=== PATIENT | female | born 1935 | race Caucasian/White ===

== ENCOUNTER 2020-04-15 12:48 | Outpatient (CLI) | payer MEDICARE, OTHER, SELFPAY ==
--- NOTE | 2020-04-15 13:00 | CT_ITS ---
WS: [id number] CT RIGHT HIP, NONCONTRAST. HISTORY: RIGHT HIP PAIN Technique: All CT scans at [facility] use at least one of these dose optimization techniq ues: automated exposure control; mA and/or kV adjustment per patient size (includes targeted exams wh ere dose is matched to clinical indication); or iterative reconstruction. DLP: 694.35 mGycm COMPARISON: Hip radiographs 04/15/2020. History: RIGHT hip pain. Patient fell 3 weeks ago. No acute RIGHT hip fracture. Mild narrowing of the hip joint with osteoarthritis. Endovascular graft is noted extending into the LEFT external iliac artery. There is a partially healed fracture involving the RIGHT inferior pubic rami. No fracture involving t he superior pubic rami. RIGHT adnexal cyst with a maximum diameter of 2.[address]/CT lower leg RT wo con* [id number] IMPRESSION: 1. Partially healed, nondisplaced fracture inferior RIGHT pubic rami. 2. No RIGHT hip fracture.
== END 2020-04-15 12:49 | disposition home or self-care (01) ==
LOC: RADWPI 12:53
PROVIDERS: Family Provider Family Medicine; PCP Family Medicine; Visit Provider Family Medicine
DX: M25.551 Pain in right hip (principal); W19.XXXA Unspecified fall, initial encounter
CPT/HCPCS: 73700

== ENCOUNTER 2020-04-15 13:13 | Outpatient (CLI) | payer MEDICARE, OTHER, SELFPAY ==
--- NOTE | 2020-04-15 | XR_ITS ---
WS: [id number] RIGHT HIP HISTORY: RIGHT HIP PAIN COMPARISON: 01/19/2019 Right hip: No acute fracture or dislocation. Mild osteopenia and mild joint space narrowing. No destr uctive bone process. Arterial stent grafts in the RIGHT iliac artery. 3. Note: The RIGHT inferior pubic rami fracture seen by CT is not evident radiographically. XR/XR hip RT 2-3V wo/w pel* [id number] IMPRESSION: 1. No hip fracture. 2. Mild osteopenia and degenerative joint disease.
== END 2020-04-15 13:14 | disposition home or self-care (01) ==
LOC: RADOUTREAD 13:15
PROVIDERS: Family Provider Family Medicine; PCP Family Medicine; Visit Provider Family Medicine
DX: Z53.9 Procedure and treatment not carried out, unspecified reason (principal)

== ENCOUNTER 2020-06-14 12:51 | Outpatient (CLI) | payer MEDICARE, OTHER, SELFPAY ==
--- NOTE | 2020-06-14 | CT_ITS ---
WS: [id number] CT PELVIS WITHOUT CONTRAST. HISTORY: PELVIC FX TECHNIQUE: Contiguous imaging is performed of the pelvis without contrast. Coronal and sagittal refor mats are reviewed. All CT scans at [facility] use at least one of these dose optimization techniques: automated exposure control; mA and/or kV adjustment per patient size (includes targeted exams where dose is matched to clinical indication); or iterative reconstruction. DLP: 788.47 mGycm COMPARISON: 04/08/2018. Pelvis radiograph 05/27/2020. 04/15/2020. Moderate LEFT convex scoliosis lumbar spine with asymmetric disc space narrowing and vacuum disc phen omenon. Partially healed fracture RIGHT inferior pubic ramus. This fracture was described on 0. No new or interval fractures. SI joints are slightly narrowed bilaterally. Mild degenerative joint disease at the hips. Stent catheter in the RIGHT iliac vein. Atherosclerosis in the external and internal iliac arteries. RIGHT adnexal cyst measures 2.6 cm. No interval change in size since 04/08/2018. CT/CT pelvis wo con [id number] IMPRESSION: 1. No acute pelvic fracture. 2. Partially healed RIGHT inferior pubic rami fracture. Previously described o n 04/15/2020. 3. Moderate rotoscoliosis to the LEFT lumbar spine. 4. Long-term stability RIGHT adnexal cyst.
== END 2020-06-14 12:52 | disposition home or self-care (01) ==
LOC: RADWPI 12:59
PROVIDERS: Family Provider Family Medicine; PCP Family Medicine; Visit Provider Family Medicine
DX: S32.9XXA Fracture of unspecified parts of lumbosacral spine and pelvis, initial encounter for closed fracture (principal); X58.XXXA Exposure to other specified factors, initial encounter; M41.86 Other forms of scoliosis, lumbar region
CPT/HCPCS: 72192

== ENCOUNTER 2020-07-25 10:23 | Outpatient (CLI) | payer MEDICARE, OTHER, SELFPAY ==
--- NOTE | 2020-07-25 11:00 | USCV_ITS ---
Piedad Zamora Age: 84 Gender: F : 1935 Exam Date: 07/25/2020 10:58 Ordering Phys: Malika Platt MD ([email or web address]) Technologist: Maribel Hernandez Exam Location: [facility] [place] Indication: CAROTID STENOSIS Risk Factors: Previous Vascular Surgery: Right Brachial BP: / Left Brachial BP: / Right Left Velocity (cm/s) Spectral Plaque Velocity (cm/s) Spectral Plaque Syst/Diast Broadening Syst/Diast Broadening 89.30/ 11.00 Prox CCA 94.80 / 14.30 63.90/ 14.30 Mid CCA 68.40 / 8.80 59.50/ 12.10 Distal CCA 59.50 / 12.10 233.20/44.20 Prox ICA 84.90 / 24.30 152.80/34.20 Mid ICA 92.60 / 22.10 88.50/ 18.10 Distal ICA 69.50 / 15.40 86.00 ECA 87.10 3.65 ICA/CCA 1.35 Antegrade Vertebral Antegrade 37.50/ 8.80 cm/s 59.50/ 12.10 cm/s Tri Subclavian Tri FINDINGS Moderate to heavy heterogeneous plaques at the right bifurcation and proximal internal carotid artery. Moderate heterogeneous plaques of the left bifurcation and proximal internal carotid artery. Antegrade flow in the vertebral arteries bilaterally. Normal Doppler flow velocities in the external carotid arteries bilaterally. CONCLUSIONS Moderate to heavy heterogeneous plaques at the right bifurcation and proximal internal carotid artery with velocity elevation consistent with 50-79% stenosis. Moderate heterogeneous plaques of the left bifurcation and proximal internal carotid arteryw with velocity elevation consistent with 16-49% stenosis. Intimal thickening in the common carotid arteries bilaterally . Dr Malika Platt MD [facility] (Electronically Signed) Final Date: 26 July 2020 09:20 S
== END 2020-07-25 10:24 | disposition home or self-care (01) ==
LOC: US 10:25
PROVIDERS: PCP Family Medicine; Visit Provider Internal Medicine Cardiovascular Disease
DX: I65.23 Occlusion and stenosis of bilateral carotid arteries (principal)
CPT/HCPCS: 93880

== ENCOUNTER 2020-07-30 13:30 | Outpatient (CLI) | payer MEDICARE, OTHER, SELFPAY ==
--- NOTE | 2020-07-30 13:38 | CT_ITS ---
WS: [id number] CT CHEST TECHNIQUE: Contrast enhanced CT of the chest with coronal and sagittal reformatted images. CLINICAL INFORMATION: LEFT PULMONARY NODULE COMPARISON: June 08, 2019 DLP: 624.[address] scans at [facility] use at least one of these dose optimization techniques: automat ed exposure control; mA and/or kV adjustment per patient size (includes targeted exams where dose is matched to clinical indication); or iterative reconstruction. FINDINGS: Moderate chronic emphysematous changes. Again seen are the bilateral mainly upper lobe tree-in-bud in filtrates no significant change since 2019. Spiculated nodular opacity right middle lobe anteriorly i s new from previous and may represent focal fibrosis but indeterminant measuring 8 mm. Recommend 3-6 month follow-up. Sternotomy with prior CABG. Coronary calcification. Aortic calcification. Normal caliber thoracic aor ta. Proximal main pulmonary arteries are normal. No mediastinal or hilar lymphadenopathy. No axillary lymphadenopathy. Small esophageal hiatal hernia. Cholecystectomy clips. Adrenal glands are normal. Hypertrophic changes thoracic spine. Dorsal spinal stimulator in the mid thoracic spine. Fibrosis in the lung apices.No other suspicious findings. CT/CT chest w con* [id number] IMPRESSION: 1. Moderate chronic emphysematous changes. 2. No mediastinal or hilar lymphadenopathy. 3. Fibrotic changes with tree-in-bud opacities in the upper lobes bilaterally not significantly changed since June 06, 2019. 4. Slightly spiculated opacity in the right middle lobe anteriorly may represe nt incidental fibrosis but indeterminant. Recommend 3-6 month follow-up. Spicul ated opacity measures 8 mm. 5. Small esophageal hiatal hernia. 6. No other significant changes from previous.
[2020-07-30] MEDS: iodixanol 320 mg/mL 100mL Btl IV (14:29)
== END 2020-07-30 13:31 | disposition home or self-care (01) ==
LOC: RADWPI 13:37
PROVIDERS: PCP Family Medicine; Visit Provider Family Medicine
DX: R91.1 Solitary pulmonary nodule (principal); K44.9 Diaphragmatic hernia without obstruction or gangrene
CPT/HCPCS: 71260; Q9967

== ENCOUNTER 2020-10-06 19:50 | Inpatient (IN) | payer MEDICARE, OTHER, SELFPAY ==
[2020-10-06 19:55] VITALS: BP 158/107; PULSE 90; RESP 18; TEMP 36.4; O2SAT 97; BMI 24.7
[2020-10-06 20:17] VITALS: BP 134/95; PULSE 99; RESP 12; O2SAT 98
--- NOTE | 2020-10-06 20:30 | XRR_ITS ---
PROCEDURE INFORMATION: Exam: XR Chest, 1 View Exam date and time: 10/06/2020 8:42 PM Age: 84 years old Clinical indication: Condition or disease; Other: Covid; Shortness of breath; Prior surgery; Surgery type: Hyst, nerve stimulator, cabg, gb; Additional info: Covid+, SOB TECHNIQUE: Imaging protocol: XR of the chest Views: 1 view. COMPARISON: CT chest w con* [id number] 07/30/2020 2:23 PM FINDINGS: Lungs: Minimal hazy opacities in the bilateral upper and lower peripheral lung zones. Pleural space: No pleural effusion. No pneumothorax. Heart/Mediastinum: Mild cardiomegaly. Bones/joints: Previous sternotomy. Postsurgical changes in the lower cervical spine. XR/XR chest 1V portable [id number] IMPRESSION: Minimal hazy opacities in the bilateral upper and lower peripheral lung zones. Findings can be seen with pneumonia to include atypical etiologies.
[2020-10-06 20:49] LABS: Basophils % 0.2 %; Eosinophils % 0.3 %; Hematocrit 45.9 % (37.0-47.0); Hemoglobin 15.5 g/dL (11.5-15.3); Lymphocytes # 1.7 10^3/uL (0.8-4.8); Lymphocytes % 17.2 %; Mean Corpuscular HGB Conc 33.8 g/dL (30.0-36.0); Mean Corpuscular Hemoglobin 32.4 pg (28.0-34.0); Mean Corpuscular Volume 95.8 fL (81-99); Neutrophils # 6.83 10^3/uL (1.8-7.7); Neutrophils % 70.1 %; Nucleated Red Blood Cells % 0 %; Platelet Count 331 10^3/cmm (130-400); Red Blood Count 4.79 10^6/uL (4.1-5.3); Red Cell Distribution Width 11.9 % (12.1-15.1); White Blood Count 9.7 10^3/uL (4.0-10.0)
[2020-10-06 20:59] LABS: Alanine Aminotransferase 28 U/L (0-33); Albumin Level 3.7 g/dL (3.5-5.2); Alkaline Phosphatase 82 IU/L (35-105); Aspartate Amino Transferase 27 U/L (0-32); Blood Urea Nitrogen 24 mg/dL (8-23); C Reactive Protein 19.1 mg/L (0.0-4.9); Calcium 9.5 mg/dL (8.5-10.5); Carbon Dioxide 26 mmol/L (22-29); Chloride 105 mmol/L (98-107); Creatine Phosphokinase 36 U/L (26-192); Creatinine Clr Calc Pharmacy 46.9729; Globulin 3.7 g/dL (1.3-4.6); Glucose 127 mg/dL (65-115); Osmolality Calculated 312 mOsm/kg (285-295); Sodium 148 mmol/L (136-145); Total Protein 7.4 g/dL (6.6-8.7)
[2020-10-06 21:00] LABS: Lactate (Lactic Acid level) 1.5 mmol/L (0.5-2.2)
--- NOTE | 2020-10-06 21:15 | PC.NURSE ---
patient given water per hcp verbal consent.
[2020-10-06 21:25] LABS: D Dimer 2.34 ug/mIFEU (0-0.59)
--- NOTE | 2020-10-06 21:28 | CTR_ITS ---
PROCEDURE INFORMATION: Exam: CT Angiography Chest With Contrast Exam date and time: 10/06/2020 9:37 PM Age: 84 years old Clinical indication: Shortness of breath; Prior surgery; Surgery date: 6+ months; Surgery type: Cabg, vns; Patient HX: Covid+ w weakness, SOB, and elev d-dimer; Additional info: Covid +, SOB TECHNIQUE: Imaging protocol: Computed tomographic angiography of the chest with intravenous contrast. 3D rendering (Not supervised by radiologist): MIP and/or 3D reconstructed images were created by the technologist. Radiation optimization: All CT scans at this facility use at least one of these dose optimization techniques: automated exposure control; mA and/or kV adjustment per patient size (includes targeted exams where dose is matched to clinical indication); or iterative reconstruction. Contrast material: OMNI 350; Contrast volume: 54 ml; Contrast route: INTRAVENOUS (IV); COMPARISON: CT chest w con* [id number] 07/30/2020 2:23 PM RADIATION DOSE METRICS: Total DLP (mGy-cm): 476.56 FINDINGS: Tubes, catheters and devices: Spinal stimulator device with distal tip at the T9 level. Pulmonary arteries: Pulmonary arteries are well opacified. Pulmonary arteries are normal in caliber. No filling defects are demonstrated. No evidence of pulmonary embolism. Aorta: Atherosclerosis of the thoracic aorta. No aortic aneurysm or dissection. Lungs: Mild interstitial fibrosis in both lungs. There are ground-glass infiltrates identified, peripherally located in the bilateral lungs. Pleural space: No pleural effusion or pneumothorax noted. Heart: Mild cardiomegaly. Marked thickening of the left ventricular myocardium. No pericardial effusion. Mediastinal space: There is a small hiatal hernia present. Lymph nodes: Unremarkable. No enlarged lymph nodes. Gallbladder and bile ducts: The gallbladder is surgically absent. Bones/joints: Postop change of the cervical spine. Median sternotomy noted. Scoliosis and degeneration of the spine. Soft tissues: Unremarkable. CT/CT angio chest PE protcl [id number] IMPRESSION: 1. No evidence of pulmonary embolism. 2. No evidence of aortic dissection. 3. Mild cardiomegaly. Marked thickening of the left ventricular myocardium. No pericardial effusion. 4. Mild interstitial fibrosis in both lungs. There are ground-glass infiltrates identified, peripherally located in the bilateral lungs. Commonly reported imaging features of COVID-19 pneumonia are present. Other processes such as influenza pneumonia and organizing pneumonia, as can be seen with drug toxicity and connective tissue disease, can cause a similar imaging pattern. (Reference: Yifan) 5. Spinal stimulator device with distal tip at the T9 level. REFERENCES: Yifan Munoz, et al., Radiological Society [place] Expert Consensus Statement on Reporting Chest CT Findings Related to COVID-19. Endorsed by the Society of Thoracic Radiology, the [employer], and RSNA. Published January 10, 2020. Radiation Dose CTDIVOL = (mGy): DLP = 476.56 (mGy-cm)
[2020-10-06 21:34] VITALS: PULSE 93; RESP 18; O2SAT 98
[2020-10-06 21:40] LABS: Add Urine Microscopic? YES; Bilirubin Urine 1+ (Negative); Blood Urine Trace (Negative); Glucose Urine UA Norm (Normal); Ketones Urine 1+ (Negative); Leukocyte Esterase Urine 1+ (Negative); Nitrate Urine Negative (Negative); Protein Urine 1+ (Negative); Urine Appearance SL Hazy (CLEAR); Urine Color Yellow (Yellow); Urobilinogen Urine 4 mg/dL (Negative); pH Urine 5 (5-7)
[2020-10-06 21:45] LABS: Add Urine Culture? No; Bacteria Urine 1+ /hpf; Mucus Urine TRACE /hpf; Squamous Epithelial Cell Urine 25-40 /hpf (0-5); WBC Urine 15-25 /hpf (0-5)
--- NOTE | 2020-10-06 22:10 | W.ED.WEAKNES ---
HPI - Weakness General: Chief complaint: Weakness Stated complaint: WEAKNESS Time Seen by Provider: 10/06/20 20:07 Source: patient Mode of arrival: EMS Limitations: no limitations History of Present Illness: HPI Narrative: This 84-year-old female patient started feeling ill about 3 weeks ago. Symptoms included a fever, body aches, nausea, loss of appetite. A few days after that she got tested for Covid 19 and tested positive. Primary care providers had advised that she received the monoclonal antibodies but she declined. The patient states that she has gradually worsened and she has almost no appetite at this point. She feels very weak. She lives at home alone and the history is obtained from the patient, her primary care provider's office, and her daughter. Complaint: generalized weakness Onset (ago): week(s) (3) Duration: constant and progressively worsening Location: generalized Migration: none Relieving factors: none Exacerbating factors: none Associated symptoms: Reports chills, fever(s), myalgias and nausea; Denies chest pain, confusion, melena, decreased appetite, diaphoresis, dysuria, easy bruising, headache(s), rash, short of breath, syncope or vomiting Review of Systems General: Reports: 10 or more systems reviewed and unremarkable except in HPI and below Const: Reports: fever(s) and chills; Denies: diaphoresis Eyes: Denies: change in vision or blurry vision ENMT: Denies: throat pain, enlarged tonsils, odynophagia, hoarseness, mouth pain or swelling of lips/tongue Card: Denies: chest pain or syncope Resp: Denies: dyspnea, productive cough or non-productive cough GI: Reports: nausea; Denies: vomiting or melena : Denies: dysuria Musc: Denies: neck pain, back pain or extremity swelling Skin/Breast: Denies: rash, pruritus or erythema Neuro: Denies: headache(s) or confusion Endo: Denies: polyuria, polydipsia or tired all the time Harjinder/Lymph: Denies: easy bruising PFSH ED PFSH: Medical History (Updated 10/07/20 @ 00:05 by Phil Jim MD, [facility] [place]) ASHD (arteriosclerotic heart disease) Bilateral carotid artery stenosis Cervical stenosis of spinal canal Hyperlipidemia Hypertension Surgical History H/O discectomy H/O: hysterectomy History of carpal tunnel surgery History of knee replacement, total Hx of appendectomy Hx of CABG S/P cataract surgery S/P cholecystectomy S/P placement of VNS (vagus nerve stimulation) device Family History Other CAD (coronary artery disease) Diabetes Hypertension Social History Smoking and tobacco status: former smoker Alcohol intake: never Physical Exam Const: COMMON NORMALS: no acute distress, average body habitus, patient oriented x3, no limitations, healthy appearing, alert and well nourished HENMT: COMMON NORMALS: normocephalic, atraumatic and moist oral mucous membranes HEAD & SCALP: normocephalic and atraumatic Neck/C-Spine: COMMON NORMALS: no meningeal signs and no JVD Resp: COMMON NORMALS: normal respiratory effort, No retractions, No use of accessory muscles, clear to auscultation bilaterally and percussion normal AUSCULTATION: clear to auscultation bilaterally PERCUSSION: percussion normal Cardio: COMMON NORMALS: no JVD, regular rate, regular rhythm, S1 normal heart sound present, S2 normal heart sound present, No gallops present (Cardio), No clicks present (Cardio), No murmurs present (Cardio), No rub (Cardio) and Peripheral pulses 2+ throughout RATE: regular rate RHYTHM: regular rhythm HEART SOUNDS: S1 normal heart sound present and S2 normal heart sound present PERIPHERAL PULSES: Peripheral pulses 2+ throughout GI: COMMON NORMALS: Normal to inspection, nondistended, normoactive bowel sounds present, Soft to palpation, non-tender, No hepatosplenomegaly present, no masses and no bruits PALPATION: Yes Soft to palpation and Yes No hepatosplenomegaly present Extremity: COMMON NORMALS: normal to inspection, full ROM, capillary refill normal, no calf tenderness and no pedal edema Neuro: COMMON NORMALS: patient oriented x3 SENSORIUM/ORIENTATION: Yes alert MENINGEAL SIGNS: Yes no meningeal signs Skin: COMMON NORMALS: no rashes or lesions noted, no wounds, turgor normal, no jaundice, no petechiae and no mottling GENERAL SKIN EXAM: no rashes or lesions noted and turgor normal Course Consultations: Consultation #1: Discussed the patient with Dr. Campbell, hospitalist and he kindly accepted patient to his service. Time: 22:50 Vital Signs: Vital signs: Vital Signs Temperature 97.6 F 10/06/20 19:55 Pulse Rate 88 10/06/20 23:35 Respiratory Rate 14 10/06/20 23:35 Blood Pressure 120/76 10/06/20 23:35 Pulse Oximetry 99 10/06/20 23:35 MDM - Weakness MDM Narrative: Medical decision making narrative: This 84-year-old female patient who lives at home alone has a history of atherosclerotic heart disease, hypertension, who was diagnosed with Covid 19 almost 3 weeks ago. Patient has been unwell since then and continues to have body aches, intermittent fever, and now has a really poor appetite. Evaluation in the emergency department was unremarkable although she had a markedly elevated D-dimer. CTA of her lungs were negative for PE. I however feel it is unsafe for this patient to be discharged back home as she lives alone and her nearest relative is 3 hours away. She is high risk and so I think it is safer for her to be admitted to the hospital for further evaluation and management. Medical Records: Attestation: I reviewed the patient's medical records. Lab Data: Attestation: I reviewed the patient's lab results. Labs: Lab Results 10/06/20 10/06/20 10/06/20 Range/Units 20:10 20:10 20:10 WBC 9.7 (4.0-10.0) 10^3/ uL RBC 4.79 (4.1-5.3) 10^6/u L Hgb 15.5 H (11.5-15.3) g/dL Hct 45.9 (37.0-47.0) % MCV 95.8 (81-99) fL MCH 32.4 (28.0-34.0) pg MCHC 33.8 (30.0-36.0) g/dL RDW 11.9 L (12.1-15.1) % Plt Count 331 (130-400) 10^3/c mm MPV 10.0 (7.4-10.4) fL Neut % (Auto) 70.1 % Lymph % (Auto) 17.2 % Wood % (Auto) 10.0 % Eos % (Auto) 0.3 % Baso % (Auto) 0.2 % Neut # (Auto) 6.83 (1.8-7.7) 10^3/u L Lymph # (Auto) 1.7 (0.8-4.8) 10^3/u L Wood # (Auto) 1.0 H (0.2-0.9) 10^3/u L Eos # (Auto) 0.0 (0.0-0.8) 10^3/u L Baso # (Auto) 0.0 (0.0-0.1) 10^3/u L Nucleated RBC % (a uto) 0 % Nucleated RBCs # 0.0 /100WBC D-Dimer 2.34 H (0-0.59) ug/mIFE U Sodium 148 H (136-145) mmol/L Potassium 4.0 (3.5-5.1) mmol/L Chloride 105 (98-107) mmol/L Carbon Dioxide 26 (22-29) mmol/L Anion Gap 21.0 H (5-19) BUN 24 H (8-23) mg/dL Creatinine 0.8 (0.5-0.9) mg/dL GFR Calculation Not Reportable Glucose 127 H (65-115) mg/dL Calculated Osmolal ity 312 H (285-295) mOsm/k g Lactate (0.5-2.2) mmol/L Calcium 9.5 (8.5-10.5) mg/dL Total Bilirubin 1.0 (0.15-1.2) mg/dL AST 27 (0-32) U/L ALT 28 (0-33) U/L Alkaline Phosphata se 82 (35-105) IU/L Creatine Kinase 36 (26-192) U/L C-Reactive Protein 19.1 H (0.0-4.9) mg/L Total Protein 7.4 (6.6-8.7) g/dL Albumin 3.7 (3.5-5.2) g/dL Globulin 3.7 (1.3-4.6) g/dL Urine Color (Yellow) Urine Appearance (CLEAR) Urine pH (5-7) Ur Specific Gravit y (1.005-1.030) Urine Protein (Negative) Urine Glucose (UA) (Normal) Urine Ketones (Negative) Urine Blood (Negative) Urine Nitrate (Negative) Urine Bilirubin (Negative) Urine Urobilinogen (Negative) mg/dL Ur Leukocyte Deonna ase (Negative) Urine RBC (0-2) /hpf Urine WBC (0-5) /hpf Ur Squamous Epith Cells (0-5) /hpf Amorphous Sediment Urine Bacteria (NONE) /hpf Urine Mucus /hpf 10/06/20 10/06/20 Range/Units 20:10 21:32 WBC (4.0-10.0) 10^3/ uL RBC (4.1-5.3) 10^6/u L Hgb (11.5-15.3) g/dL Hct (37.0-47.0) % MCV (81-99) fL MCH (28.0-34.0) pg MCHC (30.0-36.0) g/dL RDW (12.1-15.1) % Plt Count (130-400) 10^3/c mm MPV (7.4-10.4) fL Neut % (Auto) % Lymph % (Auto) % Wood % (Auto) % Eos % (Auto) % Baso % (Auto) % Neut # (Auto) (1.8-7.7) 10^3/u L Lymph # (Auto) (0.8-4.8) 10^3/u L Wood # (Auto) (0.2-0.9) 10^3/u L Eos # (Auto) (0.0-0.8) 10^3/u L Baso # (Auto) (0.0-0.1) 10^3/u L Nucleated RBC % (a uto) % Nucleated RBCs # /100WBC D-Dimer (0-0.59) ug/mIFE U Sodium (136-145) mmol/L Potassium (3.5-5.1) mmol/L Chloride (98-107) mmol/L Carbon Dioxide (22-29) mmol/L Anion Gap (5-19) BUN (8-23) mg/dL Creatinine (0.5-0.9) mg/dL GFR Calculation Glucose (65-115) mg/dL Calculated Osmolal ity (285-295) mOsm/k g Lactate 1.5 (0.5-2.2) mmol/L Calcium (8.5-10.5) mg/dL Total Bilirubin (0.15-1.2) mg/dL AST (0-32) U/L ALT (0-33) U/L Alkaline Phosphata se (35-105) IU/L Creatine Kinase (26-192) U/L C-Reactive Protein (0.0-4.9) mg/L Total Protein (6.6-8.7) g/dL Albumin (3.5-5.2) g/dL Globulin (1.3-4.6) g/dL Urine Color Yellow (Yellow) Urine Appearance Sl hazy (CLEAR) Urine pH 5 (5-7) Ur Specific Gravit y 1.020 (1.005-1.030) Urine Protein 1+ H (Negative) Urine Glucose (UA) Norm (Normal) Urine Ketones 1+ H (Negative) Urine Blood Trace H (Negative) Urine Nitrate Negative (Negative) Urine Bilirubin 1+ H (Negative) Urine Urobilinogen 4 H (Negative) mg/dL Ur Leukocyte Deonna ase 1+ H (Negative) Urine RBC 5-10 H (0-2) /hpf Urine WBC 15-25 H (0-5) /hpf Ur Squamous Epith Cells 25-40 H (0-5) /hpf Amorphous Sediment Not Reportable Urine Bacteria 1+ H (NONE) /hpf Urine Mucus Trace /hpf Imaging Data^: CTA Chest: Radiologist's impression: [place] [address] CT Scan Report Signed Patient: Piedad Zamora #: [id number] : 6Acct#:[id number] Age/Sex: 84 / FADM Date: 10/06/20 Loc: ERRoom/Bed: Attending Dr: Ordering Provider/Ordering MD: Phil Jim MD, [facility] [place] Date of Service: 10/06/20 Procedure(s): CT angio chest PE protcl [id number] Accession Number(s): [id number] Report Number: [id number] PROCEDURE INFORMATION: Exam: CT Angiography Chest With Contrast Exam date and time: 10/06/2020 9:37 PM Age: 84 years old Clinical indication: Shortness of breath; Prior surgery; Surgery date: 6+ months; Surgery type: Cabg, vns; Patient HX: Covid+ w weakness, SOB, and elev d-dimer; Additional info: Covid +, SOB TECHNIQUE: Imaging protocol: Computed tomographic angiography of the chest with intravenous contrast. 3D rendering (Not supervised by radiologist): MIP and/or 3D reconstructed images were created by the technologist. Radiation optimization: All CT scans at this facility use at least one of these dose optimization techniques: automated exposure control; mA and/or kV adjustment per patient size (includes targeted exams where dose is matched to clinical indication); or iterative reconstruction. Contrast material: OMNI 350; Contrast volume: 54 ml; Contrast route: INTRAVENOUS (IV); COMPARISON: CT chest w con* [id number] 07/30/2020 2:23 PM RADIATION DOSE METRICS: Total DLP (mGy-cm): 476.56 FINDINGS: Tubes, catheters and devices: Spinal stimulator device with distal tip at the T9 level. Pulmonary arteries: Pulmonary arteries are well opacified. Pulmonary arteries are normal in caliber. No filling defects are demonstrated. No evidence of pulmonary embolism. Aorta: Atherosclerosis of the thoracic aorta. No aortic aneurysm or dissection. Lungs: Mild interstitial fibrosis in both lungs. There are ground-glass infiltrates identified, peripherally located in the bilateral lungs. Pleural space: No pleural effusion or pneumothorax noted. Heart: Mild cardiomegaly. Marked thickening of the left ventricular myocardium. No pericardial effusion. Mediastinal space: There is a small hiatal hernia present. Lymph nodes: Unremarkable. No enlarged lymph nodes. Gallbladder and bile ducts: The gallbladder is surgically absent. Bones/joints: Postop change of the cervical spine. Median sternotomy noted. Scoliosis and degeneration of the spine. Soft tissues: Unremarkable. CT/CT angio chest PE protcl [id number] IMPRESSION: 1. No evidence of pulmonary embolism. 2. No evidence of aortic dissection. 3. Mild cardiomegaly. Marked thickening of the left ventricular myocardium. No pericardial effusion. 4. Mild interstitial fibrosis in both lungs. There are ground-glass infiltrates identified, peripherally located in the bilateral lungs. Commonly reported imaging features of COVID-19 pneumonia are present. Other processes such as influenza pneumonia and organizing pneumonia, as can be seen with drug toxicity and connective tissue disease, can cause a similar imaging pattern. (Reference: Yifan) 5. Spinal stimulator device with distal tip at the T9 level. REFERENCES: Yifan Munoz et al., Radiological Society [place] Expert Consensus Statement on Reporting Chest CT Findings Related to COVID-19. Endorsed by the Society of Thoracic Radiology, the [place] [employer], and RSNA. Published January 10, 2020. Radiation Dose CTDIVOL = (mGy): DLP = 476.56 (mGy-cm) Dictated By:Darinel Blackmon MD Signed By:Darinel Blackmon MDSigned Date/Time:10/06/202244 DD/ 42 Discharge Plan Discharge Patient Disposition: Admitted As Inpatient Admit Provider: Anderson Campbell Clinical Impression: COVID-19, Generalized weakness, Hypernatremia Condition: Stable Coding Level of Care Code ED Soloist Dancer for Chg Fwd Exam Comprehensive
[2020-10-06] MEDS: iohexol 350 mg/mL 100 mL Btl IV (22:31)
[2020-10-06 22:48] VITALS: BP 155/92; PULSE 92; RESP 14; O2SAT 97
[2020-10-06] MEDS: sodium chloride 0.9% 1,000 ML 999 ML IV (22:48)
--- NOTE | 2020-10-06 22:52 | PC.NURSE ---
patient given another blanket and ice water by nurse
--- NOTE | 2020-10-06 22:56 | P.HP_ITS ---
Providers/Chief Complaint Primary Care Provider: Kwadwo Grace MD Chief Complaint: WEAKNESS History of Present Illness Piedad Zamora is a 84 year old female who has history of present ejection fraction, atherosclerotic heart disease, carotid artery stenosis right-sided 50 to 79%, left-sided 16 to 49%, follows up with Dr. Platt, tested positive with COVID-19 on 09/20 presented today with chief complaint of generalized weakness and anorexia. Patient is stating that she came back from [place] in August and got tested with COVID-19 and since then she has been struggling with her symptoms such as loose stools, generalized weakness which has gotten worse she just lost appetite and not able to eat anything that is why she decided to come to the hospital. She is denying chest pain, shortness of breath, she is on room air saturating well, she is denying dysuria her last loose bowel movement was 48 hours ago. She lives with her children. She is afraid that if she is not able to eat her health will deteriorate. Diagnosis in the ER revealed normal vitals, she saturating well on room air, normal CBC, BMP high D-dimer, CTA rule out PE, no signs of UTI however abnormal UA noted. Sodium 148, CRP 19, TSH 1.2 Review of Systems Const: Reports: change in appetite, change in weight, fatigue and malaise; Denies: fever(s) Eyes: Denies: change in vision ENMT: Denies: throat pain Card: Denies: chest pain Resp: Denies: dyspnea GI: Denies: abdominal pain : Denies: flank pain Musc: Reports: muscle cramps; Denies: neck pain Skin/Breast: Denies: rash Neuro: Denies: headache(s) Psych: Reports: anxiety and change in appetite Endo: Denies: polyuria Harjinder/Lymph: Denies: easy bruising All/Imm: Denies: urticaria Medications/Allergies Home Medications Medication Instructions Recorded Confirmed Last Taken Type acetaminophen 650 mg 650 mg PO Q12H 01/09/20 Unknown History tablet,extended release aspirin 81 mg tablet,delayed 81 mg PO DAILY 01/09/20 Unknown History release cholecalciferol (vitamin D3) 50 50 mcg PO DAILY 01/09/20 Unknown History mcg (2,000 unit) capsule diltiazem HCl 120 mg capsule,24 120 mg PO DAILY 01/09/20 Unknown History hr,extended release furosemide 40 mg tablet 40 mg PO DAILY 01/09/20 Unknown History hydrocodone 7.5 mg-acetaminophen 1 tab PO Q8H PRN 01/09/20 Unknown History 325 mg tablet meclizine 25 mg tablet 25 mg PO DAILY 01/09/20 Unknown History metformin 500 mg tablet 500 mg PO DAILY 01/09/20 Unknown History multivitamin 1 tab PO DAILY 01/09/20 Unknown History pantoprazole 40 mg tablet,delayed 40 mg PO DAILY 01/09/20 Unknown History release rosuvastatin 20 mg tablet 20 mg PO DAILY 01/09/20 Unknown History nitroglycerin 0.4 mg sublingual 0.4 mg SUBLINGUAL Q5M PRN #90 tab 01/30/20 Unknown Rx tablet Allergies Allergy/AdvReac Type Severity Reaction Status Date / Time baclofen Allergy Unknown Unknown Verified 01/09/20 09:47 castor oil Allergy Unknown unknown Verified 01/09/20 09:47 gabapentin Allergy Unknown unknown Verified 01/09/20 09:47 Sulfa (Sulfonamide Allergy Unknown unknown Verified 01/09/20 09:47 Antibiotics) Tetracyclines Allergy Unknown unknown Verified 01/09/20 09:47 PFSH Acute PFSH: Medical History (Updated 10/06/20 @ 23:44 by Anderson Campbell MD) ASHD (arteriosclerotic heart disease) Bilateral carotid artery stenosis Cervical stenosis of spinal canal Hyperlipidemia Hypertension Surgical History H/O discectomy H/O: hysterectomy History of carpal tunnel surgery History of knee replacement, total Hx of appendectomy Hx of CABG S/P cataract surgery S/P cholecystectomy S/P placement of VNS (vagus nerve stimulation) device Family History Other CAD (coronary artery disease) Diabetes Hypertension Social History Smoking and tobacco status: former smoker Alcohol intake: never Vitals/I&O/Wt Last Vital Signs Temp 97.6 F 10/06/20 19:55 Pulse 92 10/06/20 22:48 Resp 14 10/06/20 22:48 BP 155/92 10/06/20 22:48 Pulse Ox 97 10/06/20 22:48 Weight last 48 hrs Weight 63.503 kg Physical Exam Narrative: EXAM NARRATIVE: This is a very pleasant elderly female who appears mildly dehydrated currently laying comfortably in her bed Saturating well on room air No active chest pain or active respiratory distress Normal hemodynamically S1, S2 no murmur appreciated Abdomen soft nontender bowel sound present Lower extremity no edema gangrene ulcer No signs of neurological deficit EOMI, PERRLA Patient is experiencing dry cough during my interview She appears anxious Skin without any ulcers or gangrene Data : 10/06/20 20:10 10/06/20 20:10 Micro: Microbiology 10/06/20 21:05 Blood Culture - Preliminary Blood SPECIMEN COLLECTED 10/06/20 20:45 Blood Culture - Preliminary Blood SPECIMEN COLLECTED A&P Assessment and plan (1) Generalized weakness: Status: Acute (2) Anorexia: Status: Acute (3) Hypernatremia: Status: Acute Additional A&P Information Generalized weakness most likely due to COVID-19 syndrome Patient is afebrile no active signs of sepsis, x-ray is not showing any signs of consolidation, will request procalcitonin level Afebrile, saturating well on room air I would not start Decadron or remdesivir not a candidate of antibiotics as well Physical therapy evaluation in the morning Check TSH and magnesium level Calcium levels normal Hypernatremia Free water deficit 1.6 L, clinically shows sign of mild dehydration I would start her on D5 half-normal with goal to slowly correct her sodium She has not been eating well in last few days and also is suffering from loose stools Hold Lasix and Metformin Anorexia This seems to be sequelae of COVID-19 Would add mirtazapine to see if that would help her with anorexia Full code DVT prophylaxis Lovenox Cardiac diet Attestations Medical Necessity Statement*: Anticipating discharge in less than 48 hours, currently need IV fluid resuscitation for 1.6 L free water deficit and hyp ernatremia with generalized weakness Time Spent in Patient Care: 40mins Coding Level of Care Code Acute [employer] 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
--- NOTE | 2020-10-06 23:10 | PC.NURSE ---
patient daughter updated on patient condition and plan of care.
[2020-10-06 23:25] VITALS: BP 120/76; PULSE 96; O2SAT 95
[2020-10-06 23:35] VITALS: BP 120/76; PULSE 88; RESP 14; O2SAT 99
[2020-10-07] VITALS (10 sets, daily range): BP systolic 101–143; BP diastolic 65–85; PULSE 68–88; RESP 16–20; TEMP 36.2–36.8; O2SAT 92–96
[2020-10-07 01:19] LABS: Magnesium 2.3 mg/dL (1.7-2.3)
[2020-10-07] MEDS: mirtazapine 15 mg Tablet 7.5 MG PO ×2 (01:49→21:43)
[2020-10-07] MEDS: enoxaparin 40 mg/0.4 mL Syringe SUBCUT ×2 (01:49→23:52)
[2020-10-07] MEDS: HYDROcodone-acetaminophen 7.5-325 mg Tablet 1 TAB PO ×2 (01:49→20:00)
[2020-10-07] MEDS: dextrose 5%-sod chloride 0.45% 1,000 ML 30 ML IV (01:49)
[2020-10-07 07:43] LABS: Anion Gap 15.9 (5-19); Blood Urea Nitrogen 22 mg/dL (8-23); Calcium 8.7 mg/dL (8.5-10.5); Carbon Dioxide 25 mmol/L (22-29); Chloride 104 mmol/L (98-107); Creatinine Clr Calc Pharmacy 46.9729; Glucose 102 mg/dL (65-115); Osmolality Calculated 296 mOsm/kg (285-295); Potassium 3.9 mmol/L (3.5-5.1); Sodium 141 mmol/L (136-145); Thyroid Stimulating Hormone 0.88 uIU/mL (0.27-4.20)
[2020-10-07] MEDS: aspirin 81 mg EC Tablet PO (08:45)
[2020-10-07] MEDS: pantoprazole DR 40 mg Tablet 20 MG PO (08:45)
[2020-10-07] MEDS: dilTIAZem ER (24HR) 120 mg Capsule PO (08:46)
--- NOTE | 2020-10-07 10:17 | PC.NURSE ---
returned call to daughter aneta iglesias. gave daughter update.
--- NOTE | 2020-10-07 11:03 | P.PN_ITS ---
Subjective Subjective: Interval history: 84-year-old with a past medical history significant for carotid arterial disease, coronary artery disease with hx of CABG, gastroesophageal reflux disease, hypertension, hyperlipidemia and recent COVID-19 infection who presented to the hospital with progressively worsening weakness. This was also associated with intermittent fevers, bodyaches and poor po intake. No reported respiratory distress. Was not hypoxic on arrival. laboratory workup showed a WBC of 9.7, hemoglobin of 15.5, hematocrit 45.9 and platelet count of 331. D-dimer of 2.34, sodium 148, potassium 4.0, chloride 105, bicarb 26, BUN 24 and creatinine is 0.8. Glucose of 127. chest CT a showed findings consistent with COVID-19 related changes without any evidence of acute PE. Upon admission was staspnearted on hydration. Hypernatremia resolved. Remained afebile with out leukocytosis. Blood culture drawn on admission showed gram positive cocci in 1/4 Tubes. Was emperically started on IV vancomycin until final cultures. Repeat culture were drawn prior to initiating abx as conta mination was suspected. Subjective - Continue to feel weak however no reported fever, chills, nausea or vomiting. Also no chest pain or dyspnea. Feels to week to go home. Medications: Reviewed: Yes Vitals/I&O/Wt Last Vital Signs Temp 97.9 F 10/08/20 07:25 Pulse 68 10/08/20 08:43 Resp 17 10/08/20 08:43 BP 146/66 10/08/20 07:25 Pulse Ox 95 10/08/20 08:43 10/07/20 10/08/20 10/08/20 22:59 06:59 14:59 Intake Total 240 / 360 Balance 240 / 160 Weight last 48 hrs Weight 63.503 kg Physical Exam Narrative: EXAM NARRATIVE: General : Alert, Awake, NAD HEENT: Grossly unremarkable CVS : NSR CHEST : Non-labored respiration ABD : Non-distended Ext: No edema Data : 10/08/20 08:50 10/08/20 08:50 Micro: Microbiology 10/06/20 21:05 Blood Culture - Preliminary Blood 10/06/20 20:45 Blood Culture - Preliminary Blood Gram positive cocci A&P Assessment and plan (1) Bacteremia due to Gram-positive bacteria: Status: Acute (2) COVID-19: Status: Acute (3) Hypernatremia: Status: Acute (4) Hypertension: Status: Acute Qualifiers: Hypertension type: essential hypertension Qualified Code(s): I10 - Essential (primary) hypertension (5) Hyperlipidemia: Status: Acute Qualifiers: Hyperlipidemia type: mixed hyperlipidemia Qualified Code(s): E78.2 - Mixed hyperlipidemia (6) Bilateral carotid artery stenosis: Status: Acute (7) ASHD (arteriosclerotic heart disease): Status: Acute Gram positive bacteremia - 10/06 Blood culture x2 - 14 - > Gram positive cocci - Repeat blood culture x 2 now - Start on Vancomycin pharmacy to dose - Suspected contamination - Remains afebrile - Pro-calcitonin in am - Await final organism and susceptibilities COVID-19 Infection - Dx 3 weeks prior - Refused outpatient monoclonal ab tx - Chest xray and CT - Consistent with COVID-19 related changes - No respiratory distress or hypoxia - Stable on RA - No indication for decadron or remdesivir - Droplet precautions Hypernatremia - On d5 with 0.45ns - D/C IVF - Resolved Hypertension - Continue current regimen - Diltiazem ER 120 mg PO daily Dyslipidemia - Lipitor 80 mg PO daily Coronary/Carotid arterial disease - Hx of CABG - Asa/statin as noted above GERD - Protonix 20 mg PO daiy DVT ppx - Lovenox 40 mg SQ q24hr Attestations Medical Necessity Statement*: Due to new bactermia rq antibioitcs will require over 2 midnight stay in hospital Time Spent in Patient Care: Greater than 35 minutes (>than 50% of time spent in counselling and/or direct pt care on unit) . Coding Level of Care Code Acute Director Of Assisted Living for [facility] Fwd Diagnoses Bacteremia due to Gram-positive bacteria R78.81 COVID-19 U07.1 Hypernatremia E87.0 Hypertension I10 Hypertension type: essential hypertension Hyperlipidemia E78.2 Hyperlipidemia type: mixed hyperlipidemia Bilateral carotid artery stenosis I65.23 ASHD (arteriosclerotic heart disease) I25.10
--- NOTE | 2020-10-07 18:15 | PC.NURSE ---
notified Dr Landrum blood cultures 1 of 4 bottles gram positive cocci in pairs and clusters.
--- NOTE | 2020-10-07 18:24 | PC.NURSE ---
called patient's daughter and gave update
--- NOTE | 2020-10-07 22:03 | PC.PHAR ---
Vancomycin is dosed at 1000mg IVPB every 24 hours to produce a predicted trough level of 14.15 (population based pharmacokinetic analysis). A trough level has been ordered from the lab to be obtained before the fourth dose to confirm and adjust if needed.
[2020-10-07] MEDS: vancomycin 1,000 MG in sodium chloride 0.9% 250 ML 250 MG IV (22:40)
[2020-10-08] VITALS (9 sets, daily range): BP systolic 105–146; BP diastolic 56–83; PULSE 66–80; RESP 17–24; TEMP 35.9–37.6; O2SAT 94–97
[2020-10-08] MEDS: multivitamin therapeutic Tablet 1 TAB PO (05:58)
[2020-10-08] MEDS: pantoprazole DR 40 mg Tablet 20 MG PO (08:53)
[2020-10-08] MEDS: aspirin 81 mg EC Tablet PO (08:53)
[2020-10-08] MEDS: HYDROcodone-acetaminophen 7.5-325 mg Tablet 1 TAB PO ×2 (08:53→19:47)
[2020-10-08] MEDS: dilTIAZem ER (24HR) 120 mg Capsule PO (08:54)
[2020-10-08 09:12] LABS: Basophils % 0.4 %; Eosinophils # 0.1 10^3/uL (0.0-0.8); Eosinophils % 1.5 %; Hematocrit 40.2 % (37.0-47.0); Hemoglobin 13.4 g/dL (11.5-15.3); Lymphocytes # 1.9 10^3/uL (0.8-4.8); Lymphocytes % 26.4 %; Mean Corpuscular HGB Conc 33.3 g/dL (30.0-36.0); Mean Corpuscular Hemoglobin 32.2 pg (28.0-34.0); Mean Corpuscular Volume 96.6 fL (81-99); Monocytes # 0.7 10^3/uL (0.2-0.9); Monocytes % 9.7 %; Neutrophils # 4.19 10^3/uL (1.8-7.7); Nucleated Red Blood Cells % 0 %; Platelet Count 229 10^3/cmm (130-400); Red Blood Count 4.16 10^6/uL (4.1-5.3); Red Cell Distribution Width 12.2 % (12.1-15.1); White Blood Count 7.1 10^3/uL (4.0-10.0)
[2020-10-08 09:31] LABS: Alanine Aminotransferase 24 U/L (0-33); Albumin Level 3.4 g/dL (3.5-5.2); Alkaline Phosphatase 72 IU/L (35-105); Anion Gap 12.2 (5-19); Aspartate Amino Transferase 24 U/L (0-32); Blood Urea Nitrogen 16 mg/dL (8-23); Calcium 8.9 mg/dL (8.5-10.5); Carbon Dioxide 27 mmol/L (22-29); Chloride 104 mmol/L (98-107); Globulin 2.8 g/dL (1.3-4.6); Glucose 109 mg/dL (65-115); Magnesium 1.9 mg/dL (1.7-2.3); Osmolality Calculated 292 mOsm/kg (285-295); Potassium 3.2 mmol/L (3.5-5.1); Sodium 140 mmol/L (136-145); Total Bilirubin 0.7 mg/dL (0.15-1.2); Total Protein 6.2 g/dL (6.6-8.7)
[2020-10-08 09:42] LABS: Procalcitonin 0.05 ng/mL (0-0.5)
--- NOTE | 2020-10-08 13:00 | P.PN_ITS ---
Subjective Subjective: Interval history: 84-year-old with a past medical history significant for carotid arterial disease, coronary artery disease with hx of CABG, gastroesophageal reflux disease, hypertension, hyperlipidemia and recent COVID-19 infection who presented to the hospital with progressively worsening weakness. This was also associated with intermittent fevers, bodyaches and poor po intake. No reported respiratory distress. Was not hypoxic on arrival. laboratory workup showed a WBC of 9.7, hemoglobin of 15.5, hematocrit 45.9 and platelet count of 331. D-dimer of 2.34, sodium 148, potassium 4.0, chloride 105, bicarb 26, BUN 24 and creatinine is 0.8. Glucose of 127. chest CT a showed findings consistent with COVID-19 related changes without any evidence of acute PE. Upon admission was staspnearted on hydration. Hypernatremia resolved. Remained afebile with out leukocytosis. Blood culture drawn on admission showed gram positive cocci in 1/4 Tubes. Was emperically started on IV vancomycin until final cultures. Repeat culture were drawn prior to initiating abx as conta mination was suspected. Subjective 10/07 - Continue to feel weak however no reported fever, chills, nausea or vomiting. Also no chest pain or dyspnea. Feels to week to go home. 10/08 - No new clinical events overnight. No fever or chills. Continue to feel weak with poor appetitie. Medications: Reviewed: Yes Vitals/I&O/Wt Last Vital Signs Temp 97.4 F L 10/08/20 11:21 Pulse 66 10/08/20 11:21 Resp 18 10/08/20 11:21 BP 112/67 10/08/20 11:21 Pulse Ox 95 10/08/20 11:21 10/07/20 10/08/20 10/08/20 22:59 06:59 14:59 Intake Total 240 / 360 Balance 240 / 160 Weight last 48 hrs Weight 63.503 kg Physical Exam Narrative: EXAM NARRATIVE: General : Alert, Awake, NAD HEENT: Grossly unremarkable CVS : NSR CHEST : Non-labored respiration ABD : Non-distended Ext: No edema Data : 10/08/20 08:50 10/08/20 08:50 Micro: Microbiology 10/06/20 21:05 Blood Culture - Preliminary Blood 10/06/20 20:45 Blood Culture - Preliminary Blood Gram positive cocci A&P Assessment and plan (1) Bacteremia due to Gram-positive bacteria: Status: Acute (2) COVID-19: Status: Acute (3) Hypernatremia: Status: Acute (4) Hypertension: Status: Acute Qualifiers: Hypertension type: essential hypertension Qualified Code(s): I10 - Essential (primary) hypertension (5) Hyperlipidemia: Status: Acute Qualifiers: Hyperlipidemia type: mixed hyperlipidemia Qualified Code(s): E78.2 - Mixed hyperlipidemia (6) Bilateral carotid artery stenosis: Status: Acute (7) ASHD (arteriosclerotic heart disease): Status: Acute Gram positive bacteremia - 10/06 Blood culture x2 - 10/21 - > Gram positive cocci - 10/07 - above blood culture now noted / bottles positive - 10/06 - Follow up on repeat blood culture x 2 - Continue Vancomycin pharmacy to dose - Suspected contamination howeve await final results. - Remains afebrile - Pro-calcitonin - pending COVID-19 Infection - Dx 3 weeks prior - Refused outpatient monoclonal ab tx - Chest xray and CTA - Consistent with COVID-19 related changes - No respiratory distress or hypoxia - Stable on RA - No indication for decadron or remdesivir - Droplet precautions Hypokalemia - K 3.2 - Replace today - Repeat BMP in am Generalized weakness - Due to above - PT/OT on consult Diabetes Mellitus - Holding metformin - Sliding scale insulin Hypernatremia - Resolved - D/C IVF - Resolved Hypertension - Continue current regimen - Diltiazem ER 120 mg PO daily - Losartan on hold due to soft BP Dyslipidemia - Lipitor 80 mg PO daily Coronary/Carotid arterial disease - Hx of CABG - Asa/statin as noted above GERD - Protonix 20 mg PO daiy DVT ppx - Lovenox 40 mg SQ q24hr Attestations Medical Necessity Statement*: Continue hospitalization for further treatment and evaluation of bacteremia requiring antibiotics Time Spent in Patient Care: Greater than 35 minutes (>than 50% of time spent in counselling and/or direct pt care on unit) . 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
--- NOTE | 2020-10-08 15:57 | PC.NURSE ---
notified lab twice that writer producer was unable to get blood for blood culture, they said they will send someone from lab to draw blood.
[2020-10-08] MEDS: atorvastatin 40 mg Tablet 80 MG PO (17:01)
--- NOTE | 2020-10-08 17:57 | PC.NURSE ---
called patient's daughter and gave update
[2020-10-08] MEDS: mirtazapine 15 mg Tablet 7.5 MG PO (21:55)
[2020-10-08] MEDS: vancomycin 1,000 MG in sodium chloride 0.9% 250 ML 250 MG IV (21:57)
[2020-10-08] MEDS: enoxaparin 40 mg/0.4 mL Syringe SUBCUT (23:59)
[2020-10-09 03:47] VITALS: BP 108/69; PULSE 64; RESP 24; TEMP 37.3; O2SAT 94
--- NOTE | 2020-10-09 06:05 | NUR.SHIFT ---
Patient had slept most of the night. She has complained of general weakness. She has complained of leg pain which is well controlled by hydrocodone per mar.
[2020-10-09] MEDS: HYDROcodone-acetaminophen 7.5-325 mg Tablet 1 TAB PO (06:11)
[2020-10-09] MEDS: multivitamin therapeutic Tablet 1 TAB PO (06:11)
[2020-10-09 07:19] VITALS: BP 105/65; PULSE 68; RESP 18; TEMP 36.6; O2SAT 94
[2020-10-09] MEDS: dilTIAZem ER (24HR) 120 mg Capsule PO (08:10)
[2020-10-09] MEDS: aspirin 81 mg EC Tablet PO (08:10)
[2020-10-09] MEDS: pantoprazole DR 40 mg Tablet 20 MG PO (08:10)
[2020-10-09 08:56] VITALS: PULSE 51; RESP 17; O2SAT 94
--- NOTE | 2020-10-09 10:36 | PC.NURSE ---
updated patient's daughter Maxine [phone].
[2020-10-09 11:02] LABS: Basophils % 0.1 %; Eosinophils # 0.1 10^3/uL (0.0-0.8); Eosinophils % 1.5 %; Hematocrit 37.6 % (37.0-47.0); Hemoglobin 12.3 g/dL (11.5-15.3); Lymphocytes % 29.6 %; Mean Corpuscular HGB Conc 32.7 g/dL (30.0-36.0); Mean Corpuscular Hemoglobin 32.5 pg (28.0-34.0); Mean Corpuscular Volume 99.5 fL (81-99); Mean Platelet Volume 10.4 fL (7.4-10.4); Monocytes # 0.6 10^3/uL (0.2-0.9); Monocytes % 8.8 %; Neutrophils # 3.95 10^3/uL (1.8-7.7); Neutrophils % 58.1 %; Nucleated Red Blood Cells % 0 %; Platelet Count 186 10^3/cmm (130-400); Red Blood Count 3.78 10^6/uL (4.1-5.3); Red Cell Distribution Width 12.6 % (12.1-15.1); White Blood Count 6.8 10^3/uL (4.0-10.0)
[2020-10-09 11:27] VITALS: BP 109/68; PULSE 68; RESP 16; TEMP 36.6; O2SAT 95
[2020-10-09 11:43] LABS: Procalcitonin 0.06 ng/mL (0-0.5)
--- NOTE | 2020-10-09 11:48 | PM.PN ---
Subjective Subjective: Interval history: 84-year-old with a past medical history significant for carotid arterial disease, coronary artery disease with hx of CABG, gastroesophageal reflux disease, hypertension, hyperlipidemia and recent COVID-19 infection who presented to the hospital with progressively worsening weakness. This was also associated with intermittent fevers, bodyaches and poor po intake. No reported respiratory distress. Was not hypoxic on arrival. laboratory workup showed a WBC of 9.7, hemoglobin of 15.5, hematocrit 45.9 and platelet count of 331. D-dimer of 2.34, sodium 148, potassium 4.0, chloride 105, bicarb 26, BUN 24 and creatinine is 0.8. Glucose of 127. chest CT a showed findings consistent with COVID-19 related changes without any evidence of acute PE. Upon admission was staspnearted on hydration. Hypernatremia resolved. Remained afebile with out leukocytosis. Blood culture drawn on admission showed gram positive cocci in 1/4 Tubes. Was emperically started on IV vancomycin until final cultures. Repeat culture were drawn prior to initiating abx as contamination was suspected. Subjective 10/07 - Continue to feel weak however no reported fever, chills, nausea or vomiting. Also no chest pain or dyspnea. Feels to week to go home. 10/08 - No new clinical events overnight. No fever or chills. Continue to feel weak with poor appetite. 10/09 - Patient was noted to have increase in appetite today. No fever or chills. Patient stated she was feeling much better today. No nausea or vomiting. Has also not c/o any chest pain or respiratory distress. Medications: Reviewed: Yes Vitals/I&O/Wt Last Vital Signs Temp 97.8 F 10/09/20 11:27 Pulse 68 10/09/20 11:27 Resp 16 10/09/20 11:27 BP 109/68 10/09/20 11:27 Pulse Ox 95 10/09/20 11:27 10/08/20 10/09/20 10/09/20 22:59 06:59 14:59 Intake Total 680 / 920 240 / 1160 240 / 240 Balance 680 / 920 240 / 1160 240 / 240 Physical Exam Narrative: EXAM NARRATIVE: General : Alert, Awake, NAD HEENT: Grossly unremarkable CVS : NSR CHEST : Non-labored respiration ABD : Non-distended Ext: No edema Data : 10/09/20 10:08 10/08/20 08:50 Micro: Microbiology 10/09/20 10:08 Blood Culture - Preliminary Blood SPECIMEN COLLECTED 10/07/20 18:40 Blood Culture - Preliminary Blood SPECIMEN COLLECTED 10/06/20 21:05 Blood Culture - Preliminary Blood 10/06/20 20:45 Blood Culture - Preliminary Blood Gram positive cocci A&P Assessment and plan (1) Bacteremia due to Gram-positive bacteria: Status: Acute (2) COVID-19: Status: Acute (3) Hypernatremia: Status: Acute (4) Hypertension: Status: Acute Qualifiers: Hypertension type: essential hypertension Qualified Code(s): I10 - Essential (primary) hypertension (5) Hyperlipidemia: Status: Acute Qualifiers: Hyperlipidemia type: mixed hyperlipidemia Qualified Code(s): E78.2 - Mixed hyperlipidemia (6) Bilateral carotid artery stenosis: Status: Acute (7) ASHD (arteriosclerotic heart disease): Status: Acute Coagulase negative staphylococcus - 10/06 Blood culture x3 - 3/4 - > D/w Micro - all three tubes possibly also growing corynebacterium - Per micro tech both sets of cultures were drawn same time some same site - In abscence of fever, leukocytosis and clear evidence of bacterial infection will stop abx. - 10/06 - Repeat blood culture x 2 - NGTD COVID-19 Infection - Dx 3 weeks prior - Refused outpatient monoclonal ab tx - Chest xray and CTA - Consistent with COVID-19 related changes - No respiratory distress or hypoxia - Stable on RA - No indication for decadron or remdesivir - Droplet precautions Hypokalemia - K 3.2 - Replaced - Repeat BMP pending today Generalized weakness - Due to above - PT/OT on consult Diabetes Mellitus - Holding metformin - Sliding scale insulin Hypernatremia - Resolved - D/C IVF - Resolved Hypertension - Continue current regimen - Diltiazem ER 120 mg PO daily - Losartan on hold due to soft BP Dyslipidemia - Lipitor 80 mg PO daily Coronary/Carotid arterial disease - Hx of CABG - Asa/statin as noted above GERD - Protonix 20 mg PO daiy DVT ppx - Lovenox 40 mg SQ q24hr Attestations Medical Necessity Statement*: Will require hospitalization for discharge planning. Possibly d/c in pm today Time Spent in Patient Care: Greater than 35 minutes (>than 50% of time spent in counselling and/or direct pt care on unit). 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
[2020-10-09 12:01] LABS: Alanine Aminotransferase 19 U/L (0-33); Alkaline Phosphatase 82 IU/L (35-105); Anion Gap 13.7 (5-19); Aspartate Amino Transferase 21 U/L (0-32); Blood Urea Nitrogen 17 mg/dL (8-23); Calcium 8.9 mg/dL (8.5-10.5); Carbon Dioxide 25 mmol/L (22-29); Chloride 107 mmol/L (98-107); Globulin 2.8 g/dL (1.3-4.6); Potassium 3.7 mmol/L (3.5-5.1); Sodium 142 mmol/L (136-145); Total Bilirubin 0.6 mg/dL (0.15-1.2)
[2020-10-09 12:14] LABS: Albumin Level 3.1 g/dL (3.5-5.2); Glucose 189 mg/dL (65-115); Osmolality Calculated 301 mOsm/kg (285-295); Total Protein 5.9 g/dL (6.6-8.7)
--- NOTE | 2020-10-09 12:34 | PC.NURSE ---
updated patient's daughter that patient will be discharged home today
--- NOTE | 2020-10-09 13:56 | PC.OT ---
OT TREATMENT ATTEMPTED THIS P.M. PATIENT REPORTS THAT SHE IS SCHEDULED FOR DISCHARGE AND WOULD PREFER TO WAIT UNTIL SHE IS HOME TO SHOWER.
--- NOTE | 2020-10-09 14:36 | PC.NURSE ---
discharge instructions given to patient and daughter given discharge instructions. patient's iv removed. patient's meds given to patient from [facility] delivered [facility]. patient assisted with getting dressed and patient taken to private vehicle via wheelchair by staff.
[2020-10-09 14:45] VITALS: BP 109/68; PULSE 68; RESP 16; TEMP 36.6; O2SAT 95
--- NOTE | 2020-10-09 17:18 | P.DS_ITS ---
Discharge Providers Date of Admission: 10/07/20 19:15 Date of Discharge: October 09, 2020 Attending Provider at Admission: Anderson Campbell MD Attending Provider at Discharge: Mark Landrum Primary Care Provider: Kwadwo Grace MD Diagnoses at Discharge Discharge Diagnosis (1) Bacteremia due to Gram-positive bacteria: Status: Resolved (2) COVID-19: Status: Acute (3) Hypernatremia: Status: Resolved (4) Hypertension: Status: Acute Qualifiers: Hypertension type: essential hypertension Qualified Code(s): I10 - Essential (primary) hypertension (5) Hyperlipidemia: Status: Acute Qualifiers: Hyperlipidemia type: mixed hyperlipidemia Qualified Code(s): E78.2 - Mixed hyperlipidemia (6) Bilateral carotid artery stenosis: Status: Acute (7) ASHD (arteriosclerotic heart disease): Status: Acute Reason for Visit Reason for Visit: WEAKNESS Hospital Course Hospital Course 84-year-old with a past medical history significant for carotid arterial disease, coronary artery disease with hx of CABG, gastroesophageal reflux disease, hypertension, hyperlipidemia and recent COVID-19 infection who presented to the hospital with progressively worsening weakness. This was also associated with intermittent fevers, bodyaches and poor po intake. No reported respiratory distress. Was not hypoxic on arrival. laboratory workup showed a WBC of 9.7, hemoglobin of 15.5, hematocrit 45.9 and platelet count of 331. D- dimer of 2.34, sodium 148, potassium 4.0, chloride 105, bicarb 26, BUN 24 and creatinine is 0.8. Glucose of 127. chest CT a showed findings consistent with COVID-19 related changes without any evidence of acute PE. Upon admission was started on IV hydration. Hypernatremia resolved. Remained afebile with out leukocytosis. Blood culture drawn on admission showed gram positive cocci in 1/4 Tubes. Was emperically started on IV vancomycin until final cultures. Repeat culture were drawn prior to initiating abx as contamination was suspected.Final culture results showed staphylococcal aureus coag-negative. This was in multiple tubes. Discussed with microbiology and appears altered were drawn from the same site. Suspected contamination. Antibiotics were discontinued. Physical Exam Narrative: EXAM NARRATIVE: General : Alert, Awake, NAD HEENT: Grossly unremarkable CVS : NSR CHEST : Non-labored respiration ABD : Non-distended Ext: No edema Discharge Data Data Completed and Pending: Completed Studies During Hospitalization Category Date Time Status CT angio chest PE protcl [id number] Stat Cat Scan 10/06/20 21:28 Completed XR chest 1V wesly ble [id number] Urgent Exams 10/06/20 20:30 Completed Pending at discharge Category Date Time Status Blood Culture Sta t Lab 10/07/20 18:40 Results Vitals: Last Vital Signs Temp 97.8 F 10/09/20 14:45 Pulse 68 10/09/20 14:45 Resp 16 10/09/20 14:45 BP 109/68 10/09/20 14:45 Pulse Ox 95 10/09/20 14:45 Discharge Plan Discharge Patient Disposition: Home Condition: Stable Prescriptions: New mirtazapine 15 mg Tablet 7.5 mg PO BEDTIME Qty: 30 RF: 0 Continued multivitamin [Multiple Vitamins] Tablet 1 tab PO DAILY@07 RF: 0 meclizine 25 mg tablet 25 mg PO DAILY PRN (Reason: Dizziness) RF: 0 aspirin [Adult Low Dose Aspirin] 81 mg tablet,delayed release (DR/EC) 81 mg PO DAILY@07 RF: 0 cholecalciferol (vitamin D3) 50 mcg (2,000 unit) capsule 50 mcg PO DAILY@07 RF: 0 hydrocodone-acetaminophen 7.5-325 mg tablet 1 tab PO Q8H PRN (Reason: Pain) RF: 0 rosuvastatin [Crestor] 20 mg tablet 20 mg PO DAILY@18 RF: 0 metformin 500 mg tablet 500 mg PO DAILY@07 RF: 0 diltiazem HCl [Tiazac] 120 mg capsule,extended release 24 hr 120 mg PO DAILY@07 RF: 0 pantoprazole 40 mg tablet,delayed release (DR/EC) 40 mg PO DAILY@07 RF: 0 acetaminophen [Tylenol 8 Hour] 650 mg tablet extended release 650 mg PO Q12H PRN (Reason: Pain) RF: 0 nitroglycerin [Nitrostat] 0.4 mg tablet, sublingual 0.4 mg SUBLINGUAL Q5M PRN (Reason: chest pain) Qty: 90 RF: 3 Estrace 0.01 % (0.1 mg/gram) Cream See Rx Instructions .ROUTE .COMPLEX RF: 0 Discontinued furosemide 40 mg tablet 40 mg PO DAILY PRN (Reason: Edema) RF: 0 losartan 25 mg Tablet 25 mg PO DAILY@07 RF: 0 Discharge Orders: Discharge Order (Routine); Ordered 10/09/20 Ordered By: Mark Landrum Referrals: Kwadwo Grace MD [Primary Care Provider] - 10/17/20 10:45 am Discharge Diet: Cardiac Discharge Activity: Increase activity as tolerated Patient Instructions: Anorexia, Mirtazapine (By mouth), Pneumonia Stoplight, Pneumonia - Viral Activity Restrictions/Additional Instructions: Continue to increase activity as tolerated. Return to ER if any fever, chest pain or respiratory distress. Follow up with your PCP with in 1 week after discharge. Discharge Attestations Time Spent in Discharge Care*: greater than 30 min Specific Discharge Activities: educating patient, discussing with family service caseworker/social workers/dc planners, documenting/other paperwork and evaluating patient/reviewing data Status at Discharge: Cognitive status at discharge: cognitively intact , Behavioral status at discharge: cooperative , Functional status at discharge: independent ambulation Overall status at discharge: patient is back to baseline Quality Metrics Clinical Quality Measures During this hospital stay, did patient experience: None Coding Level of Care Code Acute Independent Living Advisor for Chg Fwd Diagnoses Bacteremia due to Gram-positive bacteria R78.81 COVID-19 U07.1 Hypernatremia E87.0 Hypertension I10 Hypertension type: essential hypertension Hyperlipidemia E78.2 Hyperlipidemia type: mixed hyperlipidemia Bilateral carotid artery stenosis I65.23 ASHD (arteriosclerotic heart disease) I25.10
== END 2020-10-09 14:45 | disposition home or self-care (01) | DRG 872 ==
LOC: ER 20:51 → MEDSURG 10-07 00:05
PROVIDERS: Admitting Provider Internal Medicine; Emergency Provider Family Medicine; PCP Family Medicine; Visit Provider Hospitalist
DX: R78.81 Bacteremia (principal); E87.0 Hyperosmolality and hypernatremia; E78.2 Mixed hyperlipidemia; I65.23 Occlusion and stenosis of bilateral carotid arteries; I25.10 Atherosclerotic heart disease of native coronary artery without angina pectoris; I10 Essential (primary) hypertension; Z95.1 Presence of aortocoronary bypass graft; K21.9 Gastro-esophageal reflux disease without esophagitis; Z79.82 Long term (current) use of aspirin; Z79.84 Long term (current) use of oral hypoglycemic drugs; R63.0 Anorexia; Z68.24 Body mass index [BMI] 24.0-24.9, adult; Z87.891 Personal history of nicotine dependence; Z96.82 Presence of neurostimulator; E86.0 Dehydration; Z86.19 Personal history of other infectious and parasitic diseases; E87.6 Hypokalemia; E11.9 Type 2 diabetes mellitus without complications
CPT/HCPCS: 12345; 36415; 71045; 71275; 80048; 80053; 81001; 82550; 83605; 83735; 84145; 84443; 85025; 85378; 86140; 87040; 87205; 96372; 97110; 97161; 97165; 97530; 99283; G0378; J1650; J3370; J7030; J7050; J7799; Q9967

== ENCOUNTER 2020-11-11 14:01 | Outpatient (CLI) | payer MEDICARE, OTHER, SELFPAY ==
--- NOTE | 2020-11-11 14:06 | MM_ITS ---
WS: [id number] BILATERAL DIGITAL SCREENING MAMMOGRAPHY WITH CAD CLINICAL INFORMATION: SCREENING HISTORY: Screening mammogram. No current complaints. COMPARISON: TECHNIQUE: Bilateral CC and MLO views. FINDINGS: Scattered fibroglandular densities bilaterally. No suspicious focal mass, asymmetry, calcifications, or architectural distortion. No evidence of malignancy. Punctate and vascular calcifications. MM/[place] [id number] IMPRESSION: BI-RADS: 2-Benign FOLLOW UP: 1 Year Follow-up Recommend return to annual screening mammography.
== END 2020-11-11 14:02 | disposition home or self-care (01) ==
LOC: RADSHAW 14:03
PROVIDERS: PCP Family Medicine; Visit Provider Family Medicine
DX: Z12.31 Encounter for screening mammogram for malignant neoplasm of breast (principal)
CPT/HCPCS: 77067

== ENCOUNTER 2021-01-10 02:04 | Emergency (ER) | payer MEDICARE, OTHER, SELFPAY ==
[2021-01-10 02:28] VITALS: BP 189/79; PULSE 75; RESP 16; TEMP 36.4; O2SAT 97; BMI 30.1
--- NOTE | 2021-01-10 02:33 | ECG_ITS ---
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 Measurements Intervals [place] Rate: 58 P: 51 MN: 175 QRS: -3 QRSD: 80 T: 44 QT: 427 QTc: 419 Interpretive Statements SINUS BRADYCARDIA LOW QRS VOLTAGE IN PRECORDIAL LEADS [QRS DEFLECTION < 1.0 mV IN CHEST LEADS] POSSIBLE ANTERIOR MYOCARDIAL INFARCTION , OF INDETERMINATE AGE [30 ms Q WAVE IN V3/V4, OR R < 0.2 mV IN V4] Compared to ECG 01/28/2019 18:26:35 Myocardial infarct finding now present T-wave abnormality no longer present Electronically Signed On 01-10-2021 18:14:32 CDT by Kim Garcia M.D. [id number]
--- NOTE | 2021-01-10 02:54 | ED_ITS ---
HPI - General Adult General: Chief complaint: General Medical Stated complaint: high bp Time Seen by Provider: 01/10/21 02:06 Source: patient Mode of arrival: ambulatory Limitations: no limitations History of Present Illness: HPI narrative: 85-year-old female states that she has a long history of high blood pressure. States she recently increased her losartan from 25-50 last week. States her blood pressures continue to be high. Her blood pressure here is 199/90. She states been running in the 170s and 180s at home. She denies any chest pain. States she had a mild headache but is currently headache free. She denies any worsening improving factors. States she has been taking her meds as prescribed. Associated symptoms: Reports headache(s); Deny chest pain, dyspnea, nausea, rash or vomiting Review of Systems Const: Denies: fever(s), chills, body aches or change in appetite Eyes: Denies: blurry vision or eye discomfort ENMT: Denies: throat pain or dental pain Card: Denies: chest pain Resp: Denies: dyspnea GI: Denies: abdominal pain, nausea, vomiting or diarrhea : Denies: dysuria Musc: Denies: neck pain or back pain Skin/Breast: Denies: rash Neuro: Reports: headache(s) Psych: Denies: depression Harjinder/Lymph: Denies: easy bruising All/Imm: Denies: urticaria PFSH ED PFSH: Medical History (Updated 01/10/21 @ 02:56 by Rahul Viramontes MD) ASHD (arteriosclerotic heart disease) Bilateral carotid artery stenosis Cervical stenosis of spinal canal Hyperlipidemia Hypertension Surgical History H/O discectomy H/O: hysterectomy History of carpal tunnel surgery History of knee replacement, total Hx of appendectomy Hx of CABG S/P cataract surgery S/P cholecystectomy S/P placement of VNS (vagus nerve stimulation) device Family History Other CAD (coronary artery disease) Diabetes Hypertension Social History Smoking and tobacco status: former smoker Alcohol intake: never Physical Exam Const: COMMON NORMALS: no acute distress, patient oriented x3 and healthy appearing HENMT: COMMON NORMALS: normocephalic and atraumatic HEAD & SCALP: normocephalic and atraumatic Eye: COMMON NORMALS: Equal, round and reactive pupils present and EOMs intact bilaterally PUPIL: Yes Equal, round and reactive pupils present Neck/C-Spine: COMMON NORMALS: full ROM and supple Chest: COMMONS NORMALS: normal inspection of the chest and normal palpation of entire chest wall Resp: COMMON NORMALS: normal respiratory effort, No retractions, No use of accessory muscles and clear to auscultation bilaterally AUSCULTATION: clear to auscultation bilaterally Cardio: COMMON NORMALS: regular rate, regular rhythm and No murmurs present (Cardio) RATE: regular rate RHYTHM: regular rhythm GI: COMMON NORMALS: Normal to inspection, nondistended, normoactive bowel sounds present, Soft to palpation, non-tender and no masses PALPATION: Yes Soft to palpation Extremity: COMMON NORMALS: normal to inspection and full ROM Neuro: COMMON NORMALS: patient oriented x3, moves all extremities and no focal motor deficits Psych: COMMON NORMALS: mental status grossly normal, Normal thought process present and cooperative THOUGHT PROCESS: Normal thought process present Skin: COMMON NORMALS: no rashes or lesions noted and no wounds GENERAL SKIN EXAM: no rashes or lesions noted Course Vital Signs: Vital signs: Vital Signs Temperature 97.5 F L 01/10/21 02:28 Pulse Rate 61 01/10/21 03:04 Respiratory Rate 16 01/10/21 03:04 Blood Pressure 199/90 01/10/21 03:04 Pulse Oximetry 97 01/10/21 03:04 MDM - General Adult MDM Narrative: Medical decision making narrative: Patient presents with high blood pressure is improved with clonidine. She is asymptomatic and EKG here is normal. We will increase her losartan from 50 to 100 mg. She is stable for discharge and is to follow-up with PCP in 2 to 4 days return if worsening. She understands agrees to plan. EKG Data^: EKG 1: Attestation: I personally reviewed and interpreted this EKG as follows: EKG interpretation date: 01/10/21 EKG interpretation time: 03:00 Interpretation: sinus morgan hr [address] or t wave abnormalities qrs 80 qtc 423 Discharge Plan Discharge Patient Disposition: Home Clinical Impression: Hypertension Qualifiers: Hypertension type: unspecified Qualified Code(s): I10 - Essential (primary) hypertension Condition: Stable Prescriptions: Changed losartan 50 mg tablet 100 mg PO DAILY 30 Days Qty: 30 RF: 5 No Action multivitamin [Multiple Vitamins] Tablet 1 tab PO DAILY@07 RF: 0 meclizine 25 mg tablet 25 mg PO DAILY PRN (Reason: Dizziness) RF: 0 aspirin [Adult Low Dose Aspirin] 81 mg tablet,delayed release (DR/EC) 81 mg PO DAILY@07 RF: 0 cholecalciferol (vitamin D3) 50 mcg (2,000 unit) capsule 50 mcg PO DAILY@07 RF: 0 hydrocodone-acetaminophen 7.5-325 mg tablet 1 tab PO Q8H PRN (Reason: Pain) RF: 0 rosuvastatin [Crestor] 20 mg tablet 20 mg PO DAILY@18 RF: 0 metformin 500 mg tablet 500 mg PO DAILY@07 RF: 0 diltiazem HCl [Tiazac] 120 mg capsule,extended release 24 hr 120 mg PO DAILY@07 RF: 0 pantoprazole 40 mg tablet,delayed release (DR/EC) 40 mg PO DAILY@07 RF: 0 acetaminophen [Tylenol 8 Hour] 650 mg tablet extended release 650 mg PO Q12H PRN (Reason: Pain) RF: 0 nitroglycerin [Nitrostat] 0.4 mg tablet, sublingual 0.4 mg SUBLINGUAL Q5M PRN (Reason: chest pain) Qty: 90 RF: 3 Estrace 0.01 % (0.1 mg/gram) Cream See Rx Instructions .ROUTE .COMPLEX RF: 0 mirtazapine 15 mg Tablet 7.5 mg PO BEDTIME Qty: 30 RF: 0 Discharge Orders: Discharge ED (Routine); Ordered 01/10/21 Ordered By: Rahul Viramontes Referrals: Kwadwo Grace MD [Primary Care Provider] - 1-3 days Discharge Diet: Advance as tolerated Discharge Activity: Resume usual activity Patient Instructions: Hypertension (ED) Coding Level of Care Code ED Infrastructure Administrator for Chg Fwd Exam Comprehensive
[2021-01-10 02:55] VITALS: BP 199/90
[2021-01-10] MEDS: cloNIDine 0.1 mg Tablet PO (02:55)
[2021-01-10 03:04] VITALS: BP 199/90; PULSE 61; RESP 16; O2SAT 97
[2021-01-10 03:52] VITALS: BP 111/93; PULSE 56; RESP 17; TEMP 36.6; O2SAT 96
== END 2021-01-10 03:53 | disposition home or self-care (01) ==
PROVIDERS: Emergency Provider Emergency Medicine; PCP Family Medicine
DX: I10 Essential (primary) hypertension (principal); Z79.82 Long term (current) use of aspirin; E78.5 Hyperlipidemia, unspecified; Z95.1 Presence of aortocoronary bypass graft; Z87.891 Personal history of nicotine dependence
CPT/HCPCS: 93005; 99283

== ENCOUNTER 2021-01-28 13:50 | Outpatient (CLI) | payer MEDICARE, OTHER, SELFPAY ==
--- NOTE | 2021-01-28 15:00 | USCV_ITS ---
Piedad Zamora Age: 85 Gender: F : 1935 Exam Date: 01/28/2021 14:11 Ordering Phys: Malika Platt MD ([email or web address]) Technologist: Tony Martini Exam Location: [facility] [place] Indication: DISORDER OF ARTERIES AND ARTERIOLES, UNSPECIFIED Risk Factors: Previous Vascular Surgery: Right Brachial BP: / Left Brachial BP: / Right Left Velocity (cm/s) Spectral Plaque Velocity (cm/s) Spectral Plaque Syst/Diast Broadening Syst/Diast Broadening 98.10/ 13.20 Prox CCA 74.90 / 8.00 63.90/ 7.70 Mid CCA 63.70 / 9.30 67.70/ 11.20 Distal CCA 61.40 / 10.90 180.10/35.50 Prox ICA 72.50 / 16.20 80.50/ 14.30 Mid ICA 78.10 / 20.20 78.00/ 19.50 Distal ICA 53.20 / 12.10 93.20 ECA 72.00 2.82 ICA/CCA 1.23 Antegrade Vertebral Antegrade 41.00/ 7.70 cm/s 70.60/ 14.30 cm/s Bi Subclavian Bi 84.00 131.2 0 FINDINGS Moderate to heavy heterogeneous plaques at the right bifurcation and proximal internal carotid artery Moderate dense irregular plaques at the left bifurcation Intimal thickening in the common carotid arteries bilaterally Antegrade flow in the vertebral arteries bilaterally Normal Doppler flow velocities in the external carotid and subclavian arteries bilaterally CONCLUSIONS Moderate to heavy heterogeneous plaques at the right bifurcation and proximal internal carotid artery with the Doppler features consistent with 50 to 69% stenosis . Moderate dense irregular plaques at the left bifurcation consistent with less than 50% stenosis. Compared to the study from 07/25/2020, there may not be a significant change Dr Malika Platt MD [facility] (Electronically Signed) Final Date: 30 January 2021 08:14 S
== END 2021-01-28 13:51 | disposition home or self-care (01) ==
PROVIDERS: PCP Family Medicine; Visit Provider Internal Medicine Cardiovascular Disease
DX: I77.9 Disorder of arteries and arterioles, unspecified (principal); I65.23 Occlusion and stenosis of bilateral carotid arteries
CPT/HCPCS: 93880

== ENCOUNTER 2021-06-11 09:49 | Outpatient (RCR) | payer MEDICARE, OTHER, SELFPAY | END 2021-06-17 23:59 | disposition home or self-care (01) | LOC: SPT 09:49 | PROVIDERS: PCP Family Medicine; Referring Provider Orthopaedic Surgery; Visit Provider Orthopaedic Surgery | DX: M19.011 Primary osteoarthritis, right shoulder (principal) | CPT/HCPCS: 97110; 97161 ==

== ENCOUNTER 2021-06-18 06:00 | Outpatient (RCR) | payer MEDICARE, OTHER, SELFPAY | END 2021-07-17 23:59 | disposition home or self-care (01) | LOC: SPT 06:00 | PROVIDERS: PCP Family Medicine; Referring Provider Orthopaedic Surgery; Visit Provider Orthopaedic Surgery | DX: M19.011 Primary osteoarthritis, right shoulder (principal) | CPT/HCPCS: 97110 ==

== ENCOUNTER 2021-10-27 10:08 | Emergency (ER) | payer MEDICARE, OTHER, SELFPAY ==
[2021-10-27 10:16] VITALS: BP 92/70; PULSE 96; RESP 18; TEMP 36.5; O2SAT 94; BMI 29.9
--- NOTE | 2021-10-27 10:25 | XR_ITS ---
WS: [id number] XR chest 1V portable [id number] REASON FOR EXAM: fever, cough FINDINGS: No chest x-ray since 2019. The heart is at the upper limits of normal in size. Thoracic aorta is mildly tortuous and the arch calcified. No aneurysmal dilatation. Calcified granulomatous disease is present both hemithoraces. There are subtle reticular changes in the right lower lung field and also within the peripheral right midlung field. XR/XR chest 1V portable [id number] IMPRESSION: Subtle subtle lung opacities in the right lung of unknown chronicity. Subacute pneumonitis possible.
--- NOTE | 2021-10-27 10:34 | W.ED.URI ---
Documented by User: FAUSTINO Giraldo 10/27/21 12:46 HPI - URI/Sore Throat General: Chief Complaint: COVID symptoms Stated Complaint: Fever, sore throat, aching all over Time Seen by Provider: 10/27/21 10:21 Source: patient Mode of arrival: ambulatory Limitations: no limitations History of Present Illness: HPI Narrative: Patient is a nice 85-year-old female who presents to ED today with complaints of a fever of up to 101, productive cough, body aches, clear rhinorrhea,, and headache. Symptoms have been present over the past 6 to 7 days. Patient reports a previous COVID infection. She is fully immunized including booster. No sick contacts but states she does go to the grocery store for shopping. She is not having any chest pain. She does not complain of shortness of breath. No vomiting or diarrhea. PMH significant for CAD with hx of CABG, GERD, HTN, hyperlipidemia, and DM. MD elicited complaint: fever, cough and rhinorrhea Onset (ago): day(s) Consistency: constant Description of mucous: clear Able to tolerate fluids by mouth: Yes Associated symptoms: Reports fever(s) and headache(s); Deny abdominal pain, chest pain, diarrhea, ear or mastoid pain, nausea, sinus pain or vomiting Review of Systems Const: Reports: fever(s) and body aches; Denies: fatigue or malaise Eyes: Denies: change in vision, blurry vision, photophobia, eye discomfort, eye discharge or eye redness ENMT: Reports: throat pain, odynophagia, nasal discharge and post nasal drip; Denies: dental pain, ear or mastoid pain or sinus pain Card: Denies: chest pain, palpitations, irregular heart rhythm, swelling of feet/ankles, lightheadedness, syncope, pre-syncope, dyspnea on exertion or orthopnea Resp: Reports: productive cough and chest congestion; Denies: dyspnea, wheezing, pain on inspiration or hemoptysis GI: Denies: abdominal pain, nausea, vomiting or diarrhea : Denies: flank pain, dysuria or hematuria Musc: Denies: neck pain, back pain, extremity pain or joint pain Skin/Breast: Denies: rash Neuro: Reports: headache(s); Denies: numbness in extremities, weakness in extremities, sensory changes or dizziness PFSH ED PFSH: Medical History (Updated 10/27/21 @ 12:21 by FAUSTINO Giraldo) ASHD (arteriosclerotic heart disease) Bilateral carotid artery stenosis Cervical stenosis of spinal canal Hyperlipidemia Hypertension Surgical History H/O discectomy H/O: hysterectomy History of carpal tunnel surgery History of knee replacement, total Hx of appendectomy Hx of CABG S/P cataract surgery S/P cholecystectomy S/P placement of VNS (vagus nerve stimulation) device Family History Other CAD (coronary artery disease) Diabetes Hypertension Social History Smoking and tobacco status: former smoker Alcohol intake: never Physical Exam Const: COMMON NORMALS: no acute distress, patient oriented x3, no limitations, healthy appearing, alert and well nourished GENERAL APPEARANCE: cooperative ORIENTATION/CONSCIOUSNESS: Yes awake, Yes oriented to person, Yes oriented to place and Yes oriented to time HENMT: COMMON NORMALS: normocephalic, atraumatic and Normal external nose present HEAD & SCALP: normal to inspection, normocephalic and atraumatic FACE & SINUS: normal facial exam NOSE: Normal external nose present and Nasal discharge present (mild-clear) MOUTH: Normal oral and palatal mucosa present, lip normal and tongue normal THROAT: posterior oropharynx normal, tonsils normal and uvula midline Eye: GENERAL EYE: appearance normal, both eyes and all related structures Neck/C-Spine: COMMON NORMALS: full ROM and no lymphadenopathy Resp: COMMON NORMALS: normal respiratory effort EFFORT & INSPECTION: Yes able to speak in complete sentences AUSCULTATION: rhonchi Cardio: COMMON NORMALS: regular rate and regular rhythm RATE: regular rate RHYTHM: regular rhythm GI: COMMON NORMALS: Normal to inspection, nondistended, normoactive bowel sounds present, Soft to palpation, non-tender, No hepatosplenomegaly present and no masses PALPATION: Yes Soft to palpation and Yes No hepatosplenomegaly present : COMMON NORMALS: Yes no CVA tenderness BLADDER/KIDNEY EXAM: Yes no CVA tenderness Back/Pelvis: COMMON NORMALS: no CVA tenderness Extremity: COMMON NORMALS: normal to inspection, capillary refill normal, no clubbing, cyanosis or edema, no calf tenderness and no pedal edema Neuro: COMMON NORMALS: patient oriented x3 SENSORIUM/ORIENTATION: Yes alert, Yes oriented to person, Yes oriented to place and Yes oriented to time Skin: COMMON NORMALS: no rashes or lesions noted GENERAL SKIN EXAM: no rashes or lesions noted Course Vital Signs: Vital signs: Vital Signs Temperature 97.7 F 10/27/21 10:16 Pulse Rate 76 10/27/21 12:45 Respiratory Rate 19 H 10/27/21 12:45 Blood Pressure 128/52 10/27/21 12:45 Pulse Oximetry 98 10/27/21 12:45 MDM - URI/Sore Throat MDM Narrative: Medical decision making narrative: Patient clinically appears well. Her vital signs are stable. Lab work overall is fairly unremarkable. Rapid COVID and influenza are negative. She does have some subtle lung opacities in the right lung that appear new. She has previous COVID infection as well as being fully vaccinated-I would have a low suspicion for this however coronavirus PCR was obtained and pending. Patient will be placed on antibiotics at this time for outpatient treatment of pneumonia. Strict return to ED precautions given. Otherwise follow-up with primary care in 3 to 5 days if symptoms do not seem to be improving. Lab Data: Labs: Lab Results 10/27/21 10/27/21 10/27/21 10:35 10:35 11:10 WBC RBC Hgb Hct MCV MCH MCHC RDW Plt Count MPV Neut % (Auto) Lymph % (Auto) Verm[place] % (Auto) Eos % (Auto) Baso % (Auto) Neut # (Auto) Lymph # (Auto) [place] # (Auto) Eos # (Auto) Baso # (Auto) Nucleated RBC % (a uto) Nucleated RBCs # Sodium Potassium Chloride Carbon Dioxide Anion Gap BUN Creatinine GFR Calculation Glucose Calculated Osmolal ity Calcium Total Bilirubin AST ALT Alkaline Phosphata se Total Protein Albumin Globulin Urine Color Yellow (Yellow) Urine Appearance Sl hazy (CLEAR) Urine pH 5 (5-7) Ur Specific Gravit y 1.020 (1.005-1.030) Urine Protein 1+ H (Negative) Urine Glucose (UA) Norm (Normal) Urine Ketones 1+ H (Negative) Urine Blood Neg (Negative) Urine Nitrate Negative (Negative) Urine Bilirubin Neg (Negative) Urine Urobilinogen Norm mg/dL mg/dL (Negative) Ur Leukocyte Deonna ase Negative (Negative) Urine RBC None /hpf /hpf (0-2) Urine WBC 5-10 /hpf H /hpf (0-5) Ur Squamous Epith Cells 0-4 /hpf H /hpf (0-5) Amorphous Sediment Not Reportable Urine Bacteria 1+ /hpf H /hpf (NONE) Hyaline Casts 0-4 /lpf H /lpf Fine Granular Cast s 5-10 /lpf H /lpf Coarse Granular Ca sts 5-10 /lpf H /lpf Coronavirus 229E ( PCR) Influenza Type A A g Negative (Negative) Influenza Type B A g Negative (Negative) SARS-CoV-2 (PCR) SARS-CoV-2 Ag (Rap id) Negative (Negative) 10/27/21 10/27/21 10/27/21 11:37 11:37 11:40 WBC 12.9 10^3/uL H 10 ^3/uL (4.0-10.0) RBC 3.42 10^6/uL L 10 ^6/uL (4.1-5.3) Hgb 11.3 g/dL L g/dL (11.5-15.3) Hct 34.1 % L % (37.0-47.0) MCV 99.7 fl H fl (81-99) MCH 33.0 pg pg (28.0-34.0) MCHC 33.1 g/dL g/dL (30.0-36.0) RDW 11.9 % L % (12.1-15.1) Plt Count 199 10^3/cmm 10^3 /cmm (130-400) MPV 9.9 fL fL (7.4-10.4) Neut % (Auto) 76.9 % % Lymph % (Auto) 12.1 % % Vermilion % (Auto) 7.6 % % Eos % (Auto) 2.1 % % Baso % (Auto) 0.4 % % Neut # (Auto) 9.96 10^3/uL H 10 ^3/uL (1.8-7.7) Lymph # (Auto) 1.6 10^3/uL 10^3/ uL (0.8-4.8) Vermilion # (Auto) 1.0 10^3/uL H 10^ 3/uL (0.2-0.9) Eos # (Auto) 0.3 10^3/uL 10^3/ uL (0.0-0.8) Baso # (Auto) 0.1 10^3/uL 10^3/ uL (0.0-0.1) Nucleated RBC % (a uto) 0 % % Nucleated RBCs # 0.0 /100WBC /100W BC Sodium 141 mmol/L mmol/L (136-145) Potassium 3.7 mmol/L mmol/L (3.5-5.1) Chloride 103 mmol/L mmol/L (98-107) Carbon Dioxide 24 mmol/L mmol/L (22-29) Anion Gap 17.7 (5-19) BUN 20 mg/dL mg/dL (8-23) Creatinine 1.0 mg/dL H mg/dL (0.5-0.9) GFR Calculation Not Reportable Glucose 100 mg/dL mg/dL (65-115) Calculated Osmolal ity 295 mOsm/kg mOsm/ kg (285-295) Calcium 8.8 mg/dL mg/dL (8.5-10.5) Total Bilirubin 0.3 mg/dL mg/dL (0.15-1.2) AST 28 U/L U/L (0-32) ALT 17 U/L U/L (0-33) Alkaline Phosphata se 102 IU/L IU/L (35-105) Total Protein 6.6 g/dL g/dL (6.6-8.7) Albumin 3.6 g/dL g/dL (3.5-5.2) Globulin 3.0 g/dL g/dL (1.3-4.6) Urine Color Urine Appearance Urine pH Ur Specific Gravit y Urine Protein Urine Glucose (UA) Urine Ketones Urine Blood Urine Nitrate Urine Bilirubin Urine Urobilinogen Ur Leukocyte Deonna ase Urine RBC Urine WBC Ur Squamous Epith Cells Amorphous Sediment Urine Bacteria Hyaline Casts Fine Granular Cast s Coarse Granular Ca sts Coronavirus 229E ( PCR) Not detected (NOT DETECT) Influenza Type A A g Influenza Type B A g SARS-CoV-2 (PCR) Not detected (NOT DETECT) SARS-CoV-2 Ag (Rap id) Imaging Data^: CXR: Radiologist's impression: [address] [id number] ReportSigned Patient: Piedad Zamora #: [id number]: 1935cct#:[id number]/Sex: 85 / FADM Date: 10/27/21Loc: ERRoom/Bed:Attending Dr: Ordering Provider/Ordering MD: Romana Robert Date of Service: 10/27/21 Procedure(s): XR chest 1V portable 50221 Accession Number(s): [id number] Report Number: [id number] WS: [id number] XR chest 1V portable [id number] REASON FOR EXAM: fever, cough FINDINGS: No chest x-ray since 2019. The heart is at the upper limits of normal in size. Thoracic aorta is mildly tortuous and the arch calcified. No aneurysmal dilatation. Calcified granulomatous disease is present both hemithoraces. There are subtle reticular changes in the right lower lung field and also within the peripheral right midlung field. XR/XR chest 1V portable [id number] IMPRESSION: Subtle subtle lung opacities in the right lung of unknown chronicity. Subacute pneumonitis possible. Dictated By:Max Mujica Jr MDSigned By:Max Mujica Jr MDSigned Date/Time:10/27/21 1101DD/ 1053 Discharge Plan Discharge Patient Disposition: Home Clinical Impression: Pneumonia Qualifiers: Pneumonia type: due to unspecified organism Laterality: right Lung location: unspecified part of lung Qualified Code(s): J18.9 - Pneumonia, unspecified organism Condition: Stable Prescriptions: New azithromycin 250 mg tablet See Rx Instructions .ROUTE .COMPLEX Qty: 6 RF: 0 Augmentin 875-125 mg tablet 1 tab PO Q12H 7 Days Qty: 14 RF: 0 No Action multivitamin [Multiple Vitamins] Tablet 1 tab PO DAILY@07 RF: 0 meclizine 25 mg tablet 25 mg PO QAM RF: 0 aspirin [Adult Low Dose Aspirin] 81 mg tablet,delayed release (DR/EC) 81 mg PO DAILY@07 RF: 0 rosuvastatin [Crestor] 20 mg tablet 20 mg PO QAM RF: 0 pantoprazole 40 mg tablet,delayed release (DR/EC) 40 mg PO BEDTIME RF: 0 nitroglycerin [Nitrostat] 0.4 mg tablet, sublingual 0.4 mg SUBLINGUAL Q5M PRN (Reason: chest pain) Qty: 90 RF: 3 estradiol [Estrace] 0.01 % (0.1 mg/gram) Cream See Rx Instructions .ROUTE .COMPLEX RF: 0 Lasix 40 mg Tablet 40 mg PO PRN PRN (Reason: Edema) RF: 0 hydrocodone-acetaminophen 10-325 mg tablet 1 tab PO TID PRN (Reason: Pain) RF: 0 Vitamin C 500 mg Tablet 500 mg PO BEDTIME RF: 0 DILT-XR 120 mg capsule,ext.rel 24h degradable 120 mg PO DAILY@07 RF: 0 metformin 500 mg tablet extended release 24 hr 500 mg PO BEDTIME RF: 0 Vitamin D3 25 mcg (1,000 unit) Tablet 25 mcg PO DAILY@07 RF: 0 losartan 50 mg tablet 50 mg PO BID RF: 0 hydralazine 25 mg tablet 25 mg PO TID@07,15,23 RF: 0 Discharge Orders: Discharge ED (Routine); Ordered 10/27/21 Ordered By: Romana Robert Referrals: Kwadwo Grace MD [Primary Care Provider] - Patient Instructions: Viral Pneumonia (ED), Pneumonia - Bacterial Activity Restrictions/Additional Instructions: As we discussed I will contact you IF your PCR COVID comes back positive. We will place you on antibiotics in the meantime for treatment of pneumonia. Please follow-up with primary care in 3 to 5 days if symptoms do not seem to be improving. You need to return to the emergency department for severe shortness of breath or difficulty breathing, chest pain, uncontrollable fevers, generally feeling worse or unwell, or any other concerns you may have. Hope you begin to feel better soon. Coding Level of Care Code ED Cosmetic Counselor for Chg Fwd Exam Comprehensive Documented by User: Rui Pittman DO 10/27/21 15:28 HPI - URI/Sore Throat General: Chief Complaint: COVID symptoms Stated Complaint: Fever, sore throat, aching all over Time Seen by Provider: 10/27/21 10:21 PFS ED PFS: Medical History (Updated 10/27/21 @ 12:21 by FAUSTINO Giraldo) ASHD (arteriosclerotic heart disease) Bilateral carotid artery stenosis Cervical stenosis of spinal canal Hyperlipidemia Hypertension Surgical History H/O discectomy H/O: hysterectomy History of carpal tunnel surgery History of knee replacement, total Hx of appendectomy Hx of CABG S/P cataract surgery S/P cholecystectomy S/P placement of VNS (vagus nerve stimulation) device Family History Other CAD (coronary artery disease) Diabetes Hypertension Social History Smoking and tobacco status: former smoker Alcohol intake: never Course Vital Signs: Vital signs: Vital Signs Temperature 97.7 F 10/27/21 10:16 Pulse Rate 76 10/27/21 12:45 Respiratory Rate 19 H 10/27/21 12:45 Blood Pressure 128/52 10/27/21 12:45 Pulse Oximetry 98 10/27/21 12:45 MDM - URI/Sore Throat MDM Narrative: Medical decision making narrative: Chart reviewed and patient discussed with midlevel. Agree with assessment and plan. Lab Data: Labs: Lab Results 10/27/21 10/27/21 10/27/21 10:35 10:35 11:10 WBC RBC Hgb Hct MCV MCH MCHC RDW Plt Count MPV Neut % (Auto) Lymph % (Auto) [place] % (Auto) Eos % (Auto) Baso % (Auto) Neut # (Auto) Lymph # (Auto) [place] # (Auto) Eos # (Auto) Baso # (Auto) Nucleated RBC % (a uto) Nucleated RBCs # Sodium Potassium Chloride Carbon Dioxide Anion Gap BUN Creatinine GFR Calculation Glucose Calculated Osmolal ity Calcium Total Bilirubin AST ALT Alkaline Phosphata se Total Protein Albumin Globulin Urine Color Yellow (Yellow) Urine Appearance Sl hazy (CLEAR) Urine pH 5 (5-7) Ur Specific Gravit y 1.020 (1.005-1.030) Urine Protein 1+ H (Negative) Urine Glucose (UA) Norm (Normal) Urine Ketones 1+ H (Negative) Urine Blood Neg (Negative) Urine Nitrate Negative (Negative) Urine Bilirubin Neg (Negative) Urine Urobilinogen Norm mg/dL mg/dL (Negative) Ur Leukocyte Deonna ase Negative (Negative) Urine RBC None /hpf /hpf (0-2) Urine WBC 5-10 /hpf H /hpf (0-5) Ur Squamous Epith Cells 0-4 /hpf H /hpf (0-5) Amorphous Sediment Not Reportable Urine Bacteria 1+ /hpf H /hpf (NONE) Hyaline Casts 0-4 /lpf H /lpf Fine Granular Cast s 5-10 /lpf H /lpf Coarse Granular Ca sts 5-10 /lpf H /lpf Coronavirus 229E ( PCR) Influenza Type A A g Negative (Negative) Influenza Type B A g Negative (Negative) SARS-CoV-2 (PCR) SARS-CoV-2 Ag (Rap id) Negative (Negative) 10/27/21 10/27/21 10/27/21 11:37 11:37 11:40 WBC 12.9 10^3/uL H 10 ^3/uL (4.0-10.0) RBC 3.42 10^6/uL L 10 ^6/uL (4.1-5.3) Hgb 11.3 g/dL L g/dL (11.5-15.3) Hct 34.1 % L % (37.0-47.0) MCV 99.7 fl H fl (81-99) MCH 33.0 pg pg (28.0-34.0) MCHC 33.1 g/dL g/dL (30.0-36.0) RDW 11.9 % L % (12.1-15.1) Plt Count 199 10^3/cmm 10^3 /cmm (130-400) MPV 9.9 fL fL (7.4-10.4) Neut % (Auto) 76.9 % % Lymph % (Auto) 12.1 % % Vermilion % (Auto) 7.6 % % Eos % (Auto) 2.1 % % Baso % (Auto) 0.4 % % Neut # (Auto) 9.96 10^3/uL H 10 ^3/uL (1.8-7.7) Lymph # (Auto) 1.6 10^3/uL 10^3/ uL (0.8-4.8) Vermilion # (Auto) 1.0 10^3/uL H 10^ 3/uL (0.2-0.9) Eos # (Auto) 0.3 10^3/uL 10^3/ uL (0.0-0.8) Baso # (Auto) 0.1 10^3/uL 10^3/ uL (0.0-0.1) Nucleated RBC % (a uto) 0 % % Nucleated RBCs # 0.0 /100WBC /100W BC Sodium 141 mmol/L mmol/L (136-145) Potassium 3.7 mmol/L mmol/L (3.5-5.1) Chloride 103 mmol/L mmol/L (98-107) Carbon Dioxide 24 mmol/L mmol/L (22-29) Anion Gap 17.7 (5-19) BUN 20 mg/dL mg/dL (8-23) Creatinine 1.0 mg/dL H mg/dL (0.5-0.9) GFR Calculation Not Reportable Glucose 100 mg/dL mg/dL (65-115) Calculated Osmolal ity 295 mOsm/kg mOsm/ kg (285-295) Calcium 8.8 mg/dL mg/dL (8.5-10.5) Total Bilirubin 0.3 mg/dL mg/dL (0.15-1.2) AST 28 U/L U/L (0-32) ALT 17 U/L U/L (0-33) Alkaline Phosphata se 102 IU/L IU/L (35-105) Total Protein 6.6 g/dL g/dL (6.6-8.7) Albumin 3.6 g/dL g/dL (3.5-5.2) Globulin 3.0 g/dL g/dL (1.3-4.6) Urine Color Urine Appearance Urine pH Ur Specific Gravit y Urine Protein Urine Glucose (UA) Urine Ketones Urine Blood Urine Nitrate Urine Bilirubin Urine Urobilinogen Ur Leukocyte Deonna ase Urine RBC Urine WBC Ur Squamous Epith Cells Amorphous Sediment Urine Bacteria Hyaline Casts Fine Granular Cast s Coarse Granular Ca sts Coronavirus 229E ( PCR) Not detected (NOT DETECT) Influenza Type A A g Influenza Type B A g SARS-CoV-2 (PCR) Not detected (NOT DETECT) SARS-CoV-2 Ag (Rap id) Discharge Plan Discharge Patient Disposition: Home Clinical Impression: Pneumonia Qualifiers: Pneumonia type: due to unspecified organism Laterality: right Lung location: unspecified part of lung Qualified Code(s): J18.9 - Pneumonia, unspecified organism Condition: Stable Prescriptions: New azithromycin 250 mg tablet See Rx Instructions .ROUTE .COMPLEX Qty: 6 RF: 0 Augmentin 875-125 mg tablet 1 tab PO Q12H 7 Days Qty: 14 RF: 0 No Action multivitamin [Multiple Vitamins] Tablet 1 tab PO DAILY@07 RF: 0 meclizine 25 mg tablet 25 mg PO QAM RF: 0 aspirin [Adult Low Dose Aspirin] 81 mg tablet,delayed release (DR/EC) 81 mg PO DAILY@07 RF: 0 rosuvastatin [Crestor] 20 mg tablet 20 mg PO QAM RF: 0 pantoprazole 40 mg tablet,delayed release (DR/EC) 40 mg PO BEDTIME RF: 0 nitroglycerin [Nitrostat] 0.4 mg tablet, sublingual 0.4 mg SUBLINGUAL Q5M PRN (Reason: chest pain) Qty: 90 RF: 3 estradiol [Estrace] 0.01 % (0.1 mg/gram) Cream See Rx Instructions .ROUTE .COMPLEX RF: 0 Lasix 40 mg Tablet 40 mg PO PRN PRN (Reason: Edema) RF: 0 hydrocodone-acetaminophen 10-325 mg tablet 1 tab PO TID PRN (Reason: Pain) RF: 0 Vitamin C 500 mg Tablet 500 mg PO BEDTIME RF: 0 DILT-XR 120 mg capsule,ext.rel 24h degradable 120 mg PO DAILY@07 RF: 0 metformin 500 mg tablet extended release 24 hr 500 mg PO BEDTIME RF: 0 Vitamin D3 25 mcg (1,000 unit) Tablet 25 mcg PO DAILY@07 RF: 0 losartan 50 mg tablet 50 mg PO BID RF: 0 hydralazine 25 mg tablet 25 mg PO TID@,, RF: 0 Discharge Orders: Discharge ED (Routine); Ordered 10/27/21 Ordered By: Romana Robert Referrals: Kwadwo Grace MD [Primary Care Provider] - Patient Instructions: Viral Pneumonia (ED), Pneumonia - Bacterial Activity Restrictions/Additional Instructions: As we discussed I will contact you IF your PCR COVID comes back positive. We will place you on antibiotics in the meantime for treatment of pneumonia. Please follow-up with primary care in 3 to 5 days if symptoms do not seem to be improving. You need to return to the emergency department for severe shortness of breath or difficulty breathing, chest pain, uncontrollable fevers, generally feeling worse or unwell, or any other concerns you may have. Hope you begin to feel better soon. Coding Level of Care Code ED Cosmetic Counselor for Shubham Fwd Exam Comprehensive
[2021-10-27 11:03] VITALS: O2SAT 95
[2021-10-27 11:20] LABS: SARS Covid-2 Antigen Negative (Negative)
[2021-10-27 11:21] LABS: Influenza A by IFA Negative (Negative); Influenza B by IFA Negative (Negative)
[2021-10-27 11:41] LABS: Urine Appearance SL Hazy (CLEAR); Urine Color Yellow (Yellow); pH Urine 5 (5-7)
[2021-10-27 11:42] LABS: Add Urine Microscopic? YES; Bilirubin Urine Neg (Negative); Blood Urine Neg (Negative); Glucose Urine UA Norm (Normal); Ketones Urine 1+ (Negative); Leukocyte Esterase Urine Negative (Negative); Nitrate Urine Negative (Negative); Protein Urine 1+ (Negative); Urobilinogen Urine Norm (Negative)
[2021-10-27 11:55] LABS: Add Urine Culture? No; Bacteria Urine 1+ /hpf; Hyaline Casts Urine 0-4 /lpf; Squamous Epithelial Cell Urine 0-4 /hpf (0-5)
[2021-10-27 12:03] LABS: Basophils # 0.1 10^3/uL (0.0-0.1); Basophils % 0.4 %; Eosinophils # 0.3 10^3/uL (0.0-0.8); Eosinophils % 2.1 %; Hematocrit 34.1 % (37.0-47.0); Hemoglobin 11.3 g/dL (11.5-15.3); Lymphocytes # 1.6 10^3/uL (0.8-4.8); Lymphocytes % 12.1 %; Mean Corpuscular HGB Conc 33.1 g/dL (30.0-36.0); Mean Corpuscular Volume 99.7 fl (81-99); Mean Platelet Volume 9.9 fL (7.4-10.4); Monocytes % 7.6 %; Neutrophils # 9.96 10^3/uL (1.8-7.7); Neutrophils % 76.9 %; Nucleated Red Blood Cells % 0 %; Platelet Count 199 10^3/cmm (130-400); Red Blood Count 3.42 10^6/uL (4.1-5.3); Red Cell Distribution Width 11.9 % (12.1-15.1); White Blood Count 12.9 10^3/uL (4.0-10.0)
[2021-10-27 12:12] LABS: Alanine Aminotransferase 17 U/L (0-33); Albumin Level 3.6 g/dL (3.5-5.2); Alkaline Phosphatase 102 IU/L (35-105); Anion Gap 17.7 (5-19); Aspartate Amino Transferase 28 U/L (0-32); Blood Urea Nitrogen 20 mg/dL (8-23); Calcium 8.8 mg/dL (8.5-10.5); Carbon Dioxide 24 mmol/L (22-29); Chloride 103 mmol/L (98-107); Creatinine Clr Calc Pharmacy 43.5892; Glucose 100 mg/dL (65-115); Osmolality Calculated 295 mOsm/kg (285-295); Potassium 3.7 mmol/L (3.5-5.1); Sodium 141 mmol/L (136-145); Total Bilirubin 0.3 mg/dL (0.15-1.2); Total Protein 6.6 g/dL (6.6-8.7)
[2021-10-27 12:45] VITALS: BP 128/52; PULSE 76; RESP 19; O2SAT 98
[2021-10-27 14:03] LABS: Adenovirus Not Detected (NOT DETECT); Chlamydia Pneumoniae Not Detected (NOT DETECT); Coronavirus 229E,HKU1,NL63,OC4 Not Detected (NOT DETECT); Human Metapneumovirus Not Detected (NOT DETECT); Human Rhinovirus/Enterovirus Not Detected (NOT DETECT); Influenza A Not Detected (NOT DETECT); Influenza A H1 Not Detected (NOT DETECT); Influenza A H1-2009 Not Detected (NOT DETECT); Influenza A H3 Not Detected (NOT DETECT); Influenza B Not Detected (NOT DETECT); Mycoplasma Pneumoniae Not Detected (NOT DETECT); Parainfluenza Virus Type 1 Not Detected (NOT DETECT); Parainfluenza Virus Type 2 Not Detected (NOT DETECT); Parainfluenza Virus Type 3 Not Detected (NOT DETECT); Parainfluenza Virus Type 4 Not Detected (NOT DETECT); Respiratory Syncytial Virus A Not Detected (NOT DETECT); Respiratory Syncytial Virus B Not Detected (NOT DETECT); SARS-COV-2 Not Detected (NOT DETECT)
== END 2021-10-27 12:41 | disposition home or self-care (01) ==
PROVIDERS: Emergency Provider Physician Assistant; PCP Family Medicine
DX: J18.9 Pneumonia, unspecified organism (principal); Z79.82 Long term (current) use of aspirin; Z79.84 Long term (current) use of oral hypoglycemic drugs; E78.5 Hyperlipidemia, unspecified; I10 Essential (primary) hypertension; Z95.1 Presence of aortocoronary bypass graft; Z87.891 Personal history of nicotine dependence; Z20.822 Contact with and (suspected) exposure to COVID-19
CPT/HCPCS: 71045; 80053; 81001; 85025; 87426; 87635; 87804; 99283

== ENCOUNTER 2022-01-05 08:19 | Outpatient (CLI) | payer MEDICARE, OTHER, SELFPAY ==
--- NOTE | 2022-01-05 08:45 | USCV_ITS ---
Piedad Zamora Age: 86 Gender: F : 1935 Exam Date: 01/05/2022 08:52 Ordering Phys: Malika Platt MD ([email or web address]) Technologist: Cosmo Almanzar [place] [facility] [place]ication: cca disease Risk Factors: None Previous Vascular Surgery: Right Brachial BP: / Left Brachial BP: / Right Left Velocity (cm/s) Spectral Plaque Velocity (cm/s) Spectral Plaque Syst/Diast Broadening Syst/Diast Broadening 95.90/ 13.20 Prox CCA 66.80 / 11.80 95.90/ 13.20 Mid CCA 81.50 / 17.70 85.50/ 19.20 Hetro Distal CCA 74.70 / 16.70 Hetro 163.50/37.50 Hetro Prox ICA 98.20 / 21.60 Hetro 151.50/23.80 Mid ICA 111.00/ 25.50 102.20/23.80 Distal ICA 99.10 / 16.80 91.50 ECA 77.60 1.70 ICA/CCA 1.36 Antegrade Vertebral Antegrade 76.00/ 4.00 cm/s 72.50/ 8.00 cm/s Bi Subclavian Bi 104.1 69.00 0 FINDINGS Moderate to heavy heterogeneous plaques right bifurcation and proximal internal carotid artery Mild to moderate intravenous plaques of the left bifurcation and proximal internal carotid artery Antegrade flow in the vertebral arteries bilaterally Normal Doppler flow velocity in the external, vertebral and subclavian arteries bilaterally CONCLUSIONS Moderate to heavy heterogeneous plaques at the right bifurcation and proximal internal carotid artery with flow velocity elevation, consistent with 50 to 69% stenosis Mild to moderate heterogeneous plaques at the left bifurcation and proximal internal carotid artery with flow velocity elevation, consistent with less than 50% stenosis. Compared to the study from 01/28/2021, there may not be a significant Dr Malika Platt MD [facility] (Electronically Signed) Final Date: 06 January 2022 23:22 S
== END 2022-01-05 08:20 | disposition home or self-care (01) ==
PROVIDERS: PCP Family Medicine; Visit Provider Internal Medicine Cardiovascular Disease
DX: I65.23 Occlusion and stenosis of bilateral carotid arteries (principal); I77.9 Disorder of arteries and arterioles, unspecified
CPT/HCPCS: 93880

== ENCOUNTER 2022-01-08 | Outpatient (CLI) | payer MEDICARE, OTHER, SELFPAY | END 2022-01-08 23:59 | disposition home or self-care (01) | LOC: RAD 05-19 12:13 | PROVIDERS: PCP Family Medicine; Visit Provider Internal Medicine Cardiovascular Disease | DX: R06.02 Shortness of breath (principal); I25.10 Atherosclerotic heart disease of native coronary artery without angina pectoris; Z79.01 Long term (current) use of anticoagulants; I50.33 Acute on chronic diastolic (congestive) heart failure; N18.9 Chronic kidney disease, unspecified | CPT/HCPCS: 36415; 80048; 83880; 84443; 85025 ==

== ENCOUNTER → 2022-01-08 13:57 | Outpatient (BNVA) | payer MEDICARE, OTHER, SELFPAY | PROVIDERS: PCP Family Medicine; Visit Provider Internal Medicine Cardiovascular Disease | DX: I65.23 Occlusion and stenosis of bilateral carotid arteries (principal); I77.9 Disorder of arteries and arterioles, unspecified; R07.9 Chest pain, unspecified; I25.10 Atherosclerotic heart disease of native coronary artery without angina pectoris; R06.02 Shortness of breath; I50.33 Acute on chronic diastolic (congestive) heart failure; Z79.01 Long term (current) use of anticoagulants; N18.9 Chronic kidney disease, unspecified; E78.2 Mixed hyperlipidemia | CPT/HCPCS: 99214 ==

== ENCOUNTER 2022-01-28 09:25 | Outpatient (CLI) | payer MEDICARE, OTHER, SELFPAY ==
[2022-01-28 10:03] VITALS: BMI 28.6
--- NOTE | 2022-01-28 10:10 | ECG_ITS ---
[facility] Test Date: 2022-01-28 Pat Name: Piedad Zamora Department: Room: Gender: Female Garageman: Rain Enrique : 1935 Requested By: Malika Platt Order Number: [id number] Florecita MD: Malika Platt M.D. Interpretive Statements NAME OF STUDY: LEXISCAN SESTAMIBI STRESS TEST INDICATION: Cp/ashd, PROCEDURE: At the baseline, the EKG revealed normal sinus rhythm with incomplete right bundle branch block pattern. Poor R wave progression. Nonspecific T wave changes.. The baseline blood pressure was 188/71 mm Hg with a heart rate of 59 beats/min. Lexiscan was infused over a period of 20 seconds. A total of 0.4 milligrams of Lexiscan was infused. The stress phase was continued for a total of 5 minutes. Heart rate at the end of the stress phase was 76 with a blood pressure 143/46. The EKG at the peak infusion revealed no significant changes. Sestamibi was injected 20 seconds after the Lexiscan infusion. Blood pressure at the end of the recovery phase was 144/50 with a heart rate of 71 per minute. CONCLUSION: 1. No significant EKG changes with the LexiScan infusion 2. No LexiScan induced chest pain or cardiac arrhythmia 3. Normal blood pressure and heart rate response 4. Sestamibi/sestamibi perfusion scan pending; see separate report. Electronically Signed On 02-03-2022 8:18:47 CDT by Malika Platt M.D. [id number]
--- NOTE | 2022-01-28 10:11 | NMCV_ITS ---
NM monica perf SPECT r/s* [id number] Piedad Zamora Age: 86 Gender: F : 1935 Exam Date: 01/28/2022 11:10 Ordering Phys: Malika Platt MD ([email or web address]) Technologist: LITTLE Tovar Exam Location: [facility] Indications: FATIGUE SHORTNESS OF BREATH STRESS TEST Please [facility] IMAGE PROTOCOL Rest/Stress 1 Lexiscan Day Radiopharmaceutical Dose (mCi) Administration Site Administered by Rest: Tc-99m 10.2 IV LITTLE Fernandez Sestamibi Stress:Tc-99m 32.8 IV LITTLE Fernandez Sestamibi Rest: 28-Jan-2022 60 Discovery 630 Stress: 28-Jan-2022 30 Discovery 630 0.4mg Lexiscan. Images obtained in supine and prone position. SPECT RESULTS Technical Quality: Excellent Raw Data Analysis: Normal Image Corrections: No attenuation or motion correction applied Summed Stress Score: 2 Summed Rest Score: 0 Summed Difference Score: 2 PERFUSION FINDINGS Small area of slightly decreased tracer uptake was noted in the mid inferolateral and apical lateral region. Complete reversibility was noted in this region FUNCTIONAL RESULTS (calculated via Gated SPECT) Stress Image LV EF (%): 87 Stress EDV (mL):53 TID: 0.79 Stress ESV (mL):7 FUNCTIONAL FINDINGS: Segmental wall motion analysis revealing no gross wall motion abnormalities IMPRESSIONS 1. Myocardial perfusion imaging revealing a small area of reversible defect in the inferolateral wall region, suggestive of ischemia in the distribution of the left circumflex artery. 2. Normal LV ejection fraction of 87%. 3. Segmental wall motion analysis revealing no gross wall motion abnormalities 4. Normal LV volume No similar previous studies are available for comparison Dr Malika Platt MD [facility] (Electronically Signed) Final Date: 28 January 2022 23:05 S
[2022-01-28] MEDS: regadenoson 0.4 Mg/5 ml Syringe IVP (11:56)
[2022-01-28 12:11] VITALS: BP 144/50; PULSE 68
== END 2022-01-28 09:26 | disposition home or self-care (01) ==
LOC: CDL 09:27
PROVIDERS: PCP Family Medicine; Visit Provider Internal Medicine Cardiovascular Disease
DX: R53.83 Other fatigue (principal); I25.10 Atherosclerotic heart disease of native coronary artery without angina pectoris
CPT/HCPCS: 78452; 93017; A9500; J2785

== ENCOUNTER → 2022-02-19 14:54 | Outpatient (BNVA) | payer MEDICARE, OTHER, SELFPAY | PROVIDERS: PCP Family Medicine; Visit Provider Internal Medicine Cardiovascular Disease | DX: I25.10 Atherosclerotic heart disease of native coronary artery without angina pectoris (principal); I10 Essential (primary) hypertension; I65.23 Occlusion and stenosis of bilateral carotid arteries; Z95.1 Presence of aortocoronary bypass graft; E78.2 Mixed hyperlipidemia; Z86.16 Personal history of COVID-19; R53.83 Other fatigue; Z87.891 Personal history of nicotine dependence; R07.9 Chest pain, unspecified | CPT/HCPCS: 99213 ==

== ENCOUNTER 2022-03-03 07:06 | Outpatient (CLI) | payer MEDICARE, OTHER, SELFPAY ==
[2022-03-03 13:31] LABS: Basophils # 0.1 10^3/uL (0.0-0.1); Basophils % 0.5 %; Eosinophils # 0.2 10^3/uL (0.0-0.8); Eosinophils % 1.5 %; Hematocrit 33.5 % (37.0-47.0); Hemoglobin 10.9 g/dL (11.5-15.3); Lymphocytes # 2.3 10^3/uL (0.8-4.8); Lymphocytes % 20.9 %; Mean Corpuscular HGB Conc 32.5 g/dL (30.0-36.0); Mean Corpuscular Hemoglobin 32.6 pg (28.0-34.0); Mean Corpuscular Volume 100.3 fl (81-99); Mean Platelet Volume 10.2 fL (7.4-10.4); Monocytes # 0.9 10^3/uL (0.2-0.9); Neutrophils # 7.54 10^3/uL (1.8-7.7); Neutrophils % 68.6 %; Nucleated Red Blood Cells % 0 %; Platelet Count 279 10^3/cmm (130-400); Red Blood Count 3.34 10^6/uL (4.1-5.3); Red Cell Distribution Width 13.1 % (12.1-15.1)
[2022-03-03 13:45] LABS: INR 0.99 (0.83-1.21); Prothrombin Time (Patient) 13.4 Seconds (12.0-15.1)
[2022-03-03 13:54] LABS: Anion Gap 16.2 (5-19); Blood Urea Nitrogen 24 mg/dL (8-23); Calcium 9.6 mg/dL (8.5-10.5); Carbon Dioxide 23 mmol/L (22-29); Chloride 103 mmol/L (98-107); Glucose 86 mg/dL (65-115); Osmolality Calculated 289 mOsm/kg (285-295); Potassium 4.2 mmol/L (3.5-5.1); Sodium 138 mmol/L (136-145)
== END 2022-03-03 07:07 | disposition home or self-care (01) ==
LOC: LAB 07:09
PROVIDERS: PCP Family Medicine; Visit Provider Internal Medicine Cardiovascular Disease
DX: R07.9 Chest pain, unspecified (principal); Z01.812 Encounter for preprocedural laboratory examination; R00.1 Bradycardia, unspecified; R58 Hemorrhage, not elsewhere classified
CPT/HCPCS: 80048; 85025; 85610; 86850; 86900

== ENCOUNTER 2022-03-05 09:54 | Observation (INO) | payer MEDICARE, OTHER, SELFPAY ==
[2022-03-05] VITALS (36 sets, daily range): BP systolic 88–151; BP diastolic 31–66; PULSE 55–79; RESP 13–29; TEMP 36.5–37.2; O2SAT 91–98
--- NOTE | 2022-03-05 07:30 | XACV_ITS ---
Exam Room: 2 Ht: 150 cm Wt: 65 kg BSA: 1.67 m2 Gender: Female : 1935 Any Known Allergies: Other Exam Priority: Routine Procedure(s): Procedure Description: Diagnostic procedure Lc RESTREPO; Diagnostic Cath Status: Elective Diagnostic Findings * The left main is a medium caliber vessel which appears to have a tapering and narrowing of around 50% distally. * Left under descending artery is a medium caliber vessel which was found to have mild to moderate diffuse disease in the proximal and the mid segment. Competitive blood flow was noted in the first diagonal branch of the artery. The IBARRA was found to to be attached to the mid segment and was found to be atretic with some retrograde flow. The distal LAD was found to have mild diffuse intimal irregularities. The artery appears to wrap around the LV apex minimally. * The left circumflex artery patient has severe disease in the proximal segment. Then the artery appears to be completely occluded. * The right coronary artery has a tapering narrowing from 50% proximally. Right after the first RV branch, the artery appears to be totally occluded. * There was a saphenous venous bypass graft (Y graft )attached to the obtuse marginal artery and the diagonal branch. The graft appears to be widely patent. The vessels distal to the anastomosis were found to no significant stenotic lesions. Grade 2 [id number] collaterals were noted filling of the distal RCA. * Left internal mammary artery graft to the LAD was not selectively engaged. But it was found to be atretic and occluded proximally with retrograde flow from the left anterior descending artery. Conclusions 1. 86-year-old white female with history of coronary disease, status post three-vessel coronary artery bypass surgery in 1988, presenting with episodes of chest pain, dyspnea on exertion and easy fatigability. She had a myocardial perfusion imaging which revealed a small areas of reversible defect in the distribution of the left circumflex artery. In view of the patient's ongoing worsening symptoms, in order to further evaluate her coronary status as well as the graft status, a cardiac catheterization was recommended. Patient underwent left and right coronary angiogram and graft angiogram today. The findings are as follows. 2. 50% distal left main disease. Total occlusion of the circumflex artery proximally. Mild to moderate diffuse disease in the proximal to mid LAD. Occluded IBARRA to the LAD. Patent Y graft to the diagonal and obtuse marginal arteries. Total occlusion of the right coronary artery with a grade 2 [id number] collaterals. 3. I reviewed and discussed the angiogram findings with the Dr. Roe. Based on the findings, it was thought to be appropriate to optimize medical treatment at this point. Diagnostic RX Recommendation: medical therapy and/or counseling Left Ventriculography Findings: * LV gram was not performed. Pressures Phase:Rest AO : 199 / 55 ( 96 ) @ 10:09:00 AM 123 / 64 ( 88 ) @ 10:14:00 AM 114 / 47 ( 76 ) @ 10:15:00 AM 111 / 46 ( 74 ) @ 10:16:00 AM 110 / 40 ( 69 ) @ 10:18:00 AM Clinical Evaluation EBL: 5mL-10mL Procedural Details Procedure Consent Obtained. Procedure started. Current Diagnosis : Chest Pain. Pre-Procedure Time Out. Identified patient by full name and date of as verbalized by the patient/guarantor. Does the consent match the physician's order: Yes. Accurate & Complete Informed Consent: Yes. Inpatient/Outpatient History & Physical on Chart: Yes. If H&P is completed, is and addenduem needed: No; If yes, is the addendum complete: N/A. Visualize and Verify Site with Patient/Guarantor: N/A. Relevant Radiology Images available: Yes. The risks, benefits, and alternatives of sedation and/or procedure were discussed by physician. The patient agrees to continue. [facility] Clinical Fraility Score: 4: Vulnerable. [employer] Indications: Suspected CAD. Chest Pain Symptom Assessment: Typical Angina Symptoms. Correct patient, site and procedure confirmed by cath team. Current diagnosis: Chest Pain. PERRLA. 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 Lungs clear x 5 lobes. IV Site on Arrival: 20 gauge in the left anticubital. IV Fluids: 0.9% NaCl at KVO. 0 mL infused prior to labeling specialist. Pre Procedural Pulses: right dorsalis pedis was 3+. Pre Procedural Pulses: right posterior tibial was Doppled. Oxygen started at 2liters/min via nasal canula. bilateral groins was prepped with chloroprep then draped in the usual sterile fashion. Baseline sample Acquired. HR: 80 BPM. Physician arrived. Physician scrubbed in. Immediate Pre-Procedure Time Out. Correct Patient: Yes; Correct Procedure: Yes; Correct Site: Yes; Correct Patient Position: Yes; Correct Supplies: Yes; Dried Flammable Prep: Yes; Blood Products Available: N/A;. Lidocaine 1% infiltrated to the left groin. Arterial access obtained with micropuncture set. A 5 beninese JL4 catheter in over wire. Multiple views taken of left coronary artery. Catheter removed over the standard wire. A 5 beninese JR4 catheter in over wire. Multiple views taken of right coronary artery. SVG's to OM visualized and patent. SVG's to Diaganol visualized and patent. Dr. Roe called to review films. Dr. Roe arrived. Catheter removed over the standard wire. Physician review of cine films. A Suture was successful obtaining hemostatsis at the Left Femoral artery insertion site. A 5 beninese Angled Pig catheter in over wire. Catheter removed over the standard wire. Arterial sheath flushed and connected to tranducer and pressure bag with heparinized saline. Post Procedure: Pulses reassessed and unchanged. PERRLA. 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 No VTE prophylaxis required. Medication's Wasted: Lidocaine 1% = 5 mL. Medication's Wasted: Heparin = 2500 units. Total IV fluids: 100 mL. Contrast type used: Omnipaque 300 mg/mL, 150 mL bottle. Complications: None. Estimated blood loss: 5mL-10mL. Responsiveness - Normal response to verbal stimuli; alert and oriented, PERRLA. Airway - Unaffected, no intervention required; spontaneous ventilation. Circulation: W/N/L, pulses unchanged. Nausea/Vomiting: No. Procedure completed. Patient transferred by bed to CPRU. Vital chart was stopped. Access Site Site: Left Femoral artery Sheath Size: 5 Fr Hemostasis Method: Suture Hemostasis Success: Successful Procedure Medications Start: 8:52 AM Stop: 8:52 AM Medication: Fentanyl Amount: 50 mcg Route: I.V. Start: 8:55 AM Stop: 8:55 AM Medication: Versed Amount: 1 mg Route: I.V. Start: 9:03 AM Stop: 9:03 AM Medication: Versed Amount: 1 mg Route: I.V. Start: 9:06 AM Stop: 9:06 AM Medication: Heparin Amount: 1500 units Route: I.V. Start: 9:09 AM Stop: 9:09 AM Medication: Fentanyl Amount: 50 mcg Route: I.V. Start: 9:10 AM Stop: 9:10 AM Medication: Benadryl Amount: 50 mg Route: I.V. I, the attending physician, have reviewed and verified all procedure medications. Yes, all medications given per verbal order History/Risk Factors Hypertension: Yes Dyslipidemia: Yes Peripheral Arterial Disease (PAD): No Myocardial Infarction (WA): No Obesity: No Renal Disease: No Prior Interventions PCI: No CABG: Yes Valve Surgery: No Report Signatures Finalized by Dr Malika Platt MD [facility] on 03/05/2022 01:44 PM
--- NOTE | 2022-03-05 08:14 | W.PM.OPSUD ---
Surgery/Procedure H&P Update DATE OF PROCEDURE: March 05, 2022 DATE H&P PERFORMED: 02/19/22 H&P UPDATE INFORMATION: I have reviewed H&P completed within last 30 days, I have examined patient prior to procedure and No changes to prior documentation PREOP DIAGNOSIS: ASHD/ CABG. PRIMARY INDICATION FOR PROCEDURE: Debilitating chest pains, Abnormal myocardial perfusion imaging; multiple risk factors for coronary artery disease PLANNED PROCEDURE: Operation Date: 03/05/22 08:30 Proposed Procedures p Cardiac Catheterization(Left) - Malika Platt MD PATIENT REASSESSED PRIOR TO SEDATION, WITH NO CHANGE NOTED: Yes PHYSICAL EXAM: alert, oriented x 3, clear to auscultation bilaterally and regular rate & rhythm AIRWAY EVAL/ANESTHESIA PLAN: normal airway, see other exam findings, ASA III, Monitored Anesthesia, Local Anesthesia, Risks, benefits & alternatives of sedation and/or procedure discussed and Patient agrees to continue as planned
--- NOTE | 2022-03-05 09:50 | PC.NURSE ---
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 LEft grace sheath intact, NO bleeding or hematoma noted. Pt denies any discomforts at this time. Room orientation provided.
[2022-03-05] MEDS: isosorbide mononitrate ER 30 mg Tablet PO (12:18)
[2022-03-05] MEDS: sodium chloride 0.9% 1,000 ML 50 ML IV (12:18)
[2022-03-05] MEDS: hyDRALAzine 50 mg Tablet PO (12:18)
[2022-03-05] MEDS: fentaNYL 50 mcg/mL INJ 2mL 25 MCG IVP (12:19)
--- NOTE | 2022-03-05 13:20 | PC.NURSE ---
Sheath removal completed. Pressure held until hemostatis obtained. There is a small approx 2cm hematoma at site. Pt denies any flank pain of other discomforts at this time. No bleeding noted. Gauze and biocclusive dressing placed. Pt instructed to lie flat. Pt compliant.
[2022-03-05] MEDS: HYDROcodone-acetaminophen 10-325 mg Tablet 1 TAB PO (15:54)
--- NOTE | 2022-03-05 20:06 | PC.NURSE ---
Dr. Garcia notified of blood pressure of 95/34. Notified that patient was given 250 ml bolus and Losartan nonadmined. Ordered to nonadmin Hydralazine that is due.
[2022-03-05] MEDS: pantoprazole DR 40 mg Tablet PO (20:35)
[2022-03-05] MEDS: ascorbic acid 500 mg Tablet PO (20:35)
[2022-03-05] MEDS: polyethylene glycol 3350 Pkt 17 gm PO (20:56)
--- NOTE | 2022-03-05 22:09 | PC.NURSE ---
Patient ambulated with nurse. Left groin site WNL. VSS. Will monitor. Patient educated on post-cath activity restrictions and care and verbalized understanding.
[2022-03-06 02:25] VITALS: PULSE 70
[2022-03-06 04:00] VITALS: BP 123/66; PULSE 77; RESP 18; O2SAT 93
[2022-03-06] MEDS: meclizine 25 mg tablet PO (06:16)
[2022-03-06] MEDS: HYDROcodone-acetaminophen 10-325 mg Tablet 1 TAB PO (06:16)
[2022-03-06] MEDS: aspirin 81 mg EC Tablet PO (06:16)
[2022-03-06] MEDS: multivitamin therapeutic Tablet 1 TAB PO (06:16)
[2022-03-06] MEDS: cholecalciferol (vitamin D3) 1,000 unit Tablet 1000 UNIT PO (06:17)
[2022-03-06] MEDS: atorvastatin 40 mg Tablet 80 MG PO (06:17)
[2022-03-06 09:05] VITALS: BP 121/48; PULSE 72; RESP 22; O2SAT 93
[2022-03-06] MEDS: isosorbide mononitrate ER 30 mg Tablet PO (09:08)
[2022-03-06] MEDS: dilTIAZem ER (12HR) 60 mg Capsule PO (09:08)
[2022-03-06 10:14] VITALS: BP 112/46; PULSE 68; RESP 28; O2SAT 95
--- NOTE | 2022-03-06 11:03 | PC.NURSE ---
Provider contacted with Current vitals instructed to hold losartan and hydralazine at this time
[2022-03-06 11:51] VITALS: BP 112/46; PULSE 68; RESP 28; O2SAT 95
--- NOTE | 2022-03-06 11:52 | PC.NURSE ---
Discharge Note Patient discharged to Home via private vehicle accompanied by family. Discharge instructions reviewed with patient and/or corporate sales representative. Mobile pharmacy medications and/or prescriptions provided. Belongings/home medications returned.
== END 2022-03-06 11:52 | disposition home or self-care (01) ==
LOC: CSU 09:54
PROVIDERS: Admitting Provider Internal Medicine Cardiovascular Disease; PCP Family Medicine; Visit Provider Internal Medicine Cardiovascular Disease
DX: I25.10 Atherosclerotic heart disease of native coronary artery without angina pectoris (principal); Z95.1 Presence of aortocoronary bypass graft; I65.23 Occlusion and stenosis of bilateral carotid arteries; I10 Essential (primary) hypertension; E78.5 Hyperlipidemia, unspecified; E11.9 Type 2 diabetes mellitus without complications; Z86.16 Personal history of COVID-19; Z79.82 Long term (current) use of aspirin; Z87.891 Personal history of nicotine dependence
CPT/HCPCS: 36415; 93455; 96360; 99152; 99153; C1769; C1887; C1894; G0378; J1200; J1644; J2250; J3010; J3490; J7030; J8597; Q9967

== ENCOUNTER → 2022-03-17 09:24 | Outpatient (BNVA) | payer MEDICARE, OTHER, SELFPAY | PROVIDERS: PCP Family Medicine; Visit Provider Nurse Practitioner Family | DX: I25.10 Atherosclerotic heart disease of native coronary artery without angina pectoris (principal); Z87.891 Personal history of nicotine dependence | CPT/HCPCS: 80048; 99213; 99214 ==

== ENCOUNTER → 2022-04-21 14:51 | Outpatient (BNVA) | payer MEDICARE, OTHER, SELFPAY | PROVIDERS: PCP Family Medicine; Visit Provider Internal Medicine Cardiovascular Disease | DX: I10 Essential (primary) hypertension (principal); E78.2 Mixed hyperlipidemia; I65.23 Occlusion and stenosis of bilateral carotid arteries; I25.10 Atherosclerotic heart disease of native coronary artery without angina pectoris; R00.1 Bradycardia, unspecified; R55 Syncope and collapse; Z87.891 Personal history of nicotine dependence; Z95.1 Presence of aortocoronary bypass graft | CPT/HCPCS: 93229; 99214 ==

== ENCOUNTER 2022-08-04 07:35 | Emergency (ER) | payer MEDICARE, OTHER, SELFPAY ==
[2022-08-04 07:41] VITALS: BP 126/55; PULSE 84; RESP 15; TEMP 36.4; O2SAT 97; BMI 29.9
--- NOTE | 2022-08-04 07:55 | W.ED.ARRPALP ---
HPI - Arrhythmia/Palpitations General: Chief Complaint: Arrhythmia/Palpitations Stated Complaint: heart issues Time Seen by Provider: 08/04/22 07:46 Source: patient Mode of arrival: ambulatory History of Present Illness: 86-year-old female presents to the emergency room with complaint of rapid heart rate she told me that she was lying in bed and her heart rate went up to 114 115 she told nurses she was up getting ready for the day. She is not on any negative inotropes. She is known history of coronary disease had a positive stress test earlier this year she subsequently had an angiogram which showed noncritical disease no intervention was done and it was decided to continue maximal medical therapy. Angiogram reviewed she had a 50% distal left main lesion that did not require any intervention. She had no chest pain or shortness of breath associated with this episode this morning. Se has no known history of his any arrhythmias. She denies any recent illnesses no's change in medications or use [id number] decongestants or nasal sprays. MD complaint: rapid heart beat Onset (ago): minute(s) Duration: now resolved Severity: mild Associated symptoms: Deny anxiety, cough, diaphoresis, muscle cramps, nausea, paresthesias, pre-syncope, sense of impending doom, short of breath, syncope or vomiting Review of Systems Const: Denies: fever(s), chills, malaise, night sweats or diaphoresis ENMT: Denies: throat pain, ear or mastoid pain, nasal discharge or nasal congestion Card: Reports: palpitations; Denies: chest pain, irregular heart rhythm, edema, syncope or pre-syncope Resp: Denies: dyspnea, productive cough or non-productive cough GI: Denies: abdominal pain, nausea or vomiting : Denies: flank pain, difficulty voiding, dysuria, urinary frequency or urinary urgency Musc: Denies: neck pain, back pain or muscle cramps Skin/Breast: Denies: rash or pruritus Psych: Denies: anxiety PFSH ED PFSH: Medical History ASHD (arteriosclerotic heart disease) Bilateral carotid artery stenosis Cervical stenosis of spinal canal Chest pain Hyperlipidemia Hypertension Surgical History H/O discectomy H/O: hysterectomy History of carpal tunnel surgery History of knee replacement, total Hx of appendectomy Hx of CABG S/P cataract surgery S/P cholecystectomy S/P placement of VNS (vagus nerve stimulation) device Family History Grandmother CAD (coronary artery disease) Stroke Brother CAD (coronary artery disease) Cancer Diabetes Daughter Diabetes Stroke Mother Lung disease with TB Father Cancer Grandfather Cancer Other Hypertension Denies family history of Clotting disorder Dementia Chronic kidney disease (CKD) Suicide Anesthesia complication Bleeding disorder Social History Smoking and tobacco status: former smoker Alcohol intake: never Physical Exam Const: COMMON NORMALS: no acute distress GENERAL APPEARANCE: cooperative and comfortable ORIENTATION/CONSCIOUSNESS: Yes awake, Yes oriented to person, Yes oriented to place and Yes oriented to time HENMT: COMMON NORMALS: normocephalic, atraumatic and hearing grossly normal bilaterally HEAD & SCALP: normocephalic and atraumatic Eye: COMMON NORMALS: Equal, round and reactive pupils present, EOMs intact bilaterally, conjunctivae normal and no scleral icterus CONJUNCTIVA: Yes conjunctivae normal PUPIL: Yes Equal, round and reactive pupils present Neck/C-Spine: COMMON NORMALS: full ROM, no lymphadenopathy, supple and no JVD Lymph: LYMPHATIC: no lymphadenopathy noted and no lymphedema noted Resp: COMMON NORMALS: normal respiratory effort, No retractions, No use of accessory muscles and clear to auscultation bilaterally AUSCULTATION: clear to auscultation bilaterally Cardio: COMMON NORMALS: no JVD, regular rate, regular rhythm and No murmurs present (Cardio) RATE: regular rate RHYTHM: regular rhythm GI: COMMON NORMALS: Soft to palpation and No hepatosplenomegaly present AUSCULTATION: Yes normoactive bowel sounds PALPATION: Yes Soft to palpation, No Tenderness to palpation present (GI), No Guarding due to palpation present (GI) and Yes No hepatosplenomegaly present Extremity: COMMON NORMALS: normal to inspection, capillary refill normal, no clubbing, cyanosis or edema, no calf tenderness and no pedal edema Neuro: SENSORIUM/ORIENTATION: Yes oriented to person, Yes oriented to place and Yes oriented to time Skin: COMMON NORMALS: no rashes or lesions noted GENERAL SKIN EXAM: no rashes or lesions noted Course Vital Signs: Vital signs: Vital Signs Temperature 97.6 F 08/04/22 07:41 Pulse Rate 64 08/04/22 08:48 Respiratory Rate 16 08/04/22 08:48 Blood Pressure 136/52 08/04/22 08:48 Pulse Oximetry 94 08/04/22 08:48 Oxygen Delivery Me thod 08/04/22 08:48 MDM - Arrhythmia/Palpitations Medical Decision Making Patient reported elevated heart rate at home on pulse oximeter. While monitored here she had normal rate and rhythm the entire time in the emergency room no tachyarrhythmias occasional PVCs. The reported episode she had at home on the monitor was very brief was a home pulse oximeter. May have been artifact may have just not been tracking well. She has had Holter monitors in the past we will repeat a Holter monitor and have her follow-up with cardiology. Medical Records I reviewed the patient's medical records. Lab Data I reviewed the patient's lab results. : 08/04/22 08:00 08/04/22 08:00 Laboratory Results WBC 7.2 10^3/uL (4.0-10.0) 08/04/22 08:00 RBC 3.50 10^6/uL (4.1-5.3) L 08/04/22 08:00 Hgb 11.4 g/dL (11.5-15.3) L 08/04/22 08:00 Hct 34.2 % (37.0-47.0) L 08/04/22 08:00 MCV 97.7 fl (81-99) 08/04/22 08:00 MCH 32.6 pg (28.0-34.0) 08/04/22 08:00 MCHC 33.3 g/dL (30.0-36.0) 08/04/22 08:00 RDW 12.9 % (12.1-15.1) 08/04/22 08:00 Plt Count 166 10^3/cmm (130-400) 08/04/22 08:00 MPV 10.4 fL (7.4-10.4) 08/04/22 08:00 Neut % (Auto) 64.7 % 08/04/22 08:00 Lymph % (Auto) 22.3 % 08/04/22 08:00 [place] % (Auto) 9.7 % 08/04/22 08:00 Eos % (Auto) 2.2 % 08/04/22 08:00 Baso % (Auto) 0.7 % 08/04/22 08:00 Neut # (Auto) 4.65 10^3/uL (1.8-7.7) 08/04/22 08:00 Lymph # (Auto) 1.6 10^3/uL (0.8-4.8) 08/04/22 08:00 [place] # (Auto) 0.7 10^3/uL (0.2-0.9) 08/04/22 08:00 Eos # (Auto) 0.2 10^3/uL (0.0-0.8) 08/04/22 08:00 Baso # (Auto) 0.1 10^3/uL (0.0-0.1) 08/04/22 08:00 Nucleated RBC % (auto) 0 % 08/04/22 08:00 Nucleated RBCs # 0.0 /100WBC 08/04/22 08:00 Sodium 137 mmol/L (136-145) 08/04/22 08:00 Potassium 4.4 mmol/L (3.5-5.1) 08/04/22 08:00 Chloride 102 mmol/L (98-107) 08/04/22 08:00 Carbon Dioxide 22 mmol/L (22-29) 08/04/22 08:00 Anion Gap 17.4 (5-19) 08/04/22 08:00 BUN 21 mg/dL (8-23) 08/04/22 08:00 Creatinine 1.0 mg/dL (0.5-0.9) H 08/04/22 08:00 GFR Calculation Not Reportable 08/04/22 08:00 Glucose 139 mg/dL (65-115) H 08/04/22 08:00 Calculated Osmolality 289 mOsm/kg (285-295) 08/04/22 08:00 Calcium 9.5 mg/dL (8.5-10.5) 08/04/22 08:00 Total Bilirubin 0.5 mg/dL (0.15-1.2) 08/04/22 08:00 AST 23 U/L (0-32) 08/04/22 08:00 ALT 14 U/L (0-33) 08/04/22 08:00 Alkaline Phosphatase 87 U/L (35-105) 08/04/22 08:00 Total Protein 7.1 g/dL (6.6-8.7) 08/04/22 08:00 Albumin 4.1 g/dL (3.5-5.2) 08/04/22 08:00 Globulin 3.0 g/dL (1.3-4.6) 08/04/22 08:00 Discharge Plan Discharge Patient Disposition: Home Clinical Impression: Palpitations Condition: Stable Prescriptions: No Action multivitamin [Multiple Vitamins] Tablet 1 tab PO DAILY@07 aspirin [Adult Low Dose Aspirin] 81 mg tablet,delayed release (DR/EC) 81 mg PO DAILY@07 rosuvastatin [Crestor] 20 mg tablet 20 mg PO QAM pantoprazole 40 mg tablet,delayed release (DR/EC) 40 mg PO BEDTIME prednisolone acetate 1 % drops,suspension 1 drp ophthalmic (eye) DAILY PRN (Reason: inflammation) nitroglycerin [Nitrostat] 0.4 mg tablet, sublingual 0.4 mg SUBLINGUAL Q5M PRN (Reason: chest pain) Qty: 90 3RF isosorbide mononitrate 60 mg tablet extended release 24 hr 60 mg PO DAILY Qty: 90 3RF amlodipine 5 mg tablet 5 mg PO DAILY Qty: 90 3RF Rx Instructions: Dose reduced to 5mg daily due to peripheral edema hydralazine 50 mg tablet 50 mg PO DIRECTED Qty: 120 5RF Rx Instructions: Take 2 tabs every morning, 1 tab every midday, and 1 tab every evening meclizine 25 mg tablet See Rx Instructions .ROUTE .COMPLEX Qty: 100 3RF Dose Instruction: TAKE 1 TABLET BY MOUTH EVERY DAY IN THE MORNING Rx Instructions: TAKE 1 TABLET BY MOUTH EVERY DAY IN THE MORNING estradiol [Estrace] 0.01 % (0.1 mg/gram) Cream See Rx Instructions .ROUTE .COMPLEX Rx Instructions: 1 g vaginally PRN (PT STATES JUST USES WHEN SHE THINKS SHE NEEDS IT) hydrocodone-acetaminophen 10-325 mg tablet 1 tab PO TID PRN (Reason: Pain) ascorbic acid (vitamin C) [Vitamin C] 500 mg Tablet 500 mg PO BEDTIME metformin 500 mg tablet extended release 24 hr 500 mg PO BEDTIME Hold Instructions: Resume on 03/08/22. May be restarted on Wednesday cholecalciferol (vitamin D3) [Vitamin D3] 25 mcg (1,000 unit) Tablet 25 mcg PO DAILY@07 losartan 50 mg tablet 50 mg PO BID Lasix 40 mg tablet 40 mg PO PRN PRN (Reason: Edema) Qty: 30 3RF Miralax 17 gram Powder In Packet 17 g PO BEDTIME Discharge Orders: Discharge ED (Routine); Ordered 08/04/22 Ordered By: Rui Pittman Referrals: Kwadwo Grace MD [Primary Care Provider] - Discharge Diet: Advance as tolerated Discharge Activity: Resume usual activity Patient Instructions: Opioid Safety, Pain Management Activity Restrictions/Additional Instructions: manager area will make arrangements for a follow-up 48-hour Holter monitor as well as a follow-up with Dr. Platt after it is completed. Coding Level of Care Code ED Card Clothier for Shubham Fwd Exam Comprehensive
--- NOTE | 2022-08-04 08:02 | ECG_ITS ---
[facility] Test Date: 2022-08-04 Pat Name: Piedad Zamora Department: Room: Gender: Female Air Table Operator: : 1935 Requested By: Rui Sifuentes Order Number: [id number] Florecita MD: Kim Garcia M.D. Measurements Intervals [place] Rate: 77 P: 44 NH: 144 QRS: 22 QRSD: 89 T: 63 QT: 382 QTc: 434 Interpretive Statements SINUS RHYTHM POSSIBLE RIGHT VENTRICULAR CONDUCTION DELAY [RSR (QR) IN V1/V2] Compared to ECG 01/10/2021 03:00:18 Sinus bradycardia no longer present Myocardial infarct finding no longer present Electronically Signed On 08-04-2022 10:41:19 CDT by Kim Garcia M.D. [email or web address]
[2022-08-04 08:07] LABS: Basophils # 0.1 10^3/uL (0.0-0.1); Basophils % 0.7 %; Eosinophils # 0.2 10^3/uL (0.0-0.8); Eosinophils % 2.2 %; Hematocrit 34.2 % (37.0-47.0); Hemoglobin 11.4 g/dL (11.5-15.3); Lymphocytes # 1.6 10^3/uL (0.8-4.8); Lymphocytes % 22.3 %; Mean Corpuscular HGB Conc 33.3 g/dL (30.0-36.0); Mean Corpuscular Hemoglobin 32.6 pg (28.0-34.0); Mean Corpuscular Volume 97.7 fl (81-99); Mean Platelet Volume 10.4 fL (7.4-10.4); Monocytes # 0.7 10^3/uL (0.2-0.9); Monocytes % 9.7 %; Neutrophils # 4.65 10^3/uL (1.8-7.7); Neutrophils % 64.7 %; Nucleated Red Blood Cells % 0 %; Platelet Count 166 10^3/cmm (130-400); Red Cell Distribution Width 12.9 % (12.1-15.1); White Blood Count 7.2 10^3/uL (4.0-10.0)
[2022-08-04 08:33] LABS: Alanine Aminotransferase 14 U/L (0-33); Albumin Level 4.1 g/dL (3.5-5.2); Alkaline Phosphatase 87 U/L (35-105); Aspartate Amino Transferase 23 U/L (0-32); Blood Urea Nitrogen 21 mg/dL (8-23); Calcium 9.5 mg/dL (8.5-10.5); Carbon Dioxide 22 mmol/L (22-29); Chloride 102 mmol/L (98-107); Glucose 139 mg/dL (65-115); Osmolality Calculated 289 mOsm/kg (285-295); Sodium 137 mmol/L (136-145); Total Bilirubin 0.5 mg/dL (0.15-1.2); Total Protein 7.1 g/dL (6.6-8.7)
[2022-08-04 08:36] LABS: Anion Gap 17.4 (5-19); Potassium 4.4 mmol/L (3.5-5.1)
[2022-08-04 08:48] VITALS: BP 136/52; PULSE 64; RESP 16; O2SAT 94
[2022-08-04 09:17] VITALS: BP 145/54; PULSE 71; RESP 18; O2SAT 96
--- NOTE | 2022-08-04 16:11 | DCPLANNER ---
Addendum entered by Jenny Nolan 10/08/22 10:29: Patient had a follow up appointment with heart care - patient did attend appointment Patient had an appointment for a 48 hour halter monitor - patient did attend appointment. Addendum entered by Jenny Nolan 08/07/22 11:35: Patient has a follow up appointment scheduled for Wednesday, August 17, 2022 at 1:00 for a 48 hour halter monitor and 1:[address] Ybarra for ER follow up. Clinic will call patient with appointment information. Original Note: rn case manager hospice had message to schedule a follow up appointment for patient with cardiology. rn case manager hospice sent patients information to the front office staff at heart [facility]. Patients information will be printed and reviewed. Clinic will call patient with appointment information. rn case manager hospice faxed a signed order to heart care for a 48 hour halter monitor, clinic will call patient with appointment information.
== END 2022-08-04 09:19 | disposition home or self-care (01) ==
PROVIDERS: Emergency Provider Family Medicine; PCP Family Medicine
DX: R00.2 Palpitations (principal); Z79.82 Long term (current) use of aspirin; Z87.891 Personal history of nicotine dependence; E78.5 Hyperlipidemia, unspecified; I10 Essential (primary) hypertension; Z95.1 Presence of aortocoronary bypass graft
CPT/HCPCS: 80053; 85025; 93005; 99284

== ENCOUNTER → 2022-08-17 12:23 | Outpatient (BNVA) | payer MEDICARE, OTHER, SELFPAY | PROVIDERS: PCP Family Medicine; Visit Provider Internal Medicine Cardiovascular Disease | DX: I25.10 Atherosclerotic heart disease of native coronary artery without angina pectoris (principal); Z95.1 Presence of aortocoronary bypass graft; I10 Essential (primary) hypertension; R07.9 Chest pain, unspecified; R53.83 Other fatigue; E78.2 Mixed hyperlipidemia; I65.23 Occlusion and stenosis of bilateral carotid arteries; Z87.891 Personal history of nicotine dependence; R00.2 Palpitations | CPT/HCPCS: 93225; 99213; 99214 ==

== ENCOUNTER 2022-08-26 13:51 | Outpatient (CLI) | payer MEDICARE, OTHER, SELFPAY ==
--- NOTE | 2022-08-26 14:05 | XR_ITS ---
WS: [id number] DEXA (DUAL ENERGY X-RAY ABSORPTIOMETRY) Bone mineral density was performed using a Unii machine. HISTORY: POST MENOPAUSAL COMPARISON: 08/12/2017 Lumbar spine BMD (L1-L4): 1.211 g/cm2 T score: 0.3 Z score: 2.1 Total hip BMD: Left: 0.876 g/cm2. T score: -1.0 Z score: 1.3 Right: 0.950 g/cm2. T score: -0.5 Z score: 1.8 10 year probability of a major osteoporotic fracture is 19.7%. Compared to the prior study from 08/12/2017. Bilateral hips bone mineral density has decreased by 6.1%. XR/XR DEXA axial skeleton* [id number] IMPRESSION: Normal bone mineral density based upon the WHO classification for females. Significant decrease in bone mineral density within the hips since the prior st y. Osteopenia described on the prior study was related to the bone mineral density within the radius which was not performed today.
== END 2022-08-26 13:52 | disposition home or self-care (01) ==
LOC: RAD 13:58
PROVIDERS: PCP Family Medicine; Visit Provider Family Medicine
DX: Z78.0 Asymptomatic menopausal state (principal)
CPT/HCPCS: 77080

== ENCOUNTER 2022-10-19 09:46 | Outpatient (CLI) | payer MEDICARE, OTHER, SELFPAY ==
--- NOTE | 2022-10-19 09:57 | USCV_ITS ---
Piedad Zamora Age: 86 Gender: F : 1935 Exam Date: 10/19/2022 10:10 Ordering Phys: Kwadwo Grace MD Technologist: Maya Suresh Exam Location: [facility] [place] Indication: MR BP: 142 / 66 HR: 59 Rhythm: Sinus Technical Quality: Adequate MEASUREMENTS (Male / Female) Normal Values 2D ECHO LV Diastolic Diameter PLAX 3.6 cm 4.2 - 5.9 / 3.9 - 5.3 cm LV Systolic Diameter PLAX 2.9 cm LV Chamber Size 4.1 cm IVS Diastolic Thickness 1.0 cm 0.6 - 1.0 / 0.6 - 0.9 cm IVS Systolic Thickness 1.6 cm LVPW Diastolic Thickness 1.2 cm 0.6 - 1.0 / 0.6 - 0.9 cm LVPW Systolic Thickness 1.7 cm RV Chamber Size 2.3 cm LVOT Diameter 2.0 cm LV Ejection Fraction 2D Teich 41.4 % LV Ejection Fraction MOD 2C 70.5 % LV Ejection Fraction 2C AL 70.2 % LA Diameter 4.1 cm LA Width 2.9 cm LA Height 4.3 cm RA Width 2.8 cm RA Height 4.1 cm Aorta at Sinotubular Diameter 2.8 cm IVC Diameter 1.1 cm M-MODE Aortic Annulus Diameter 3.4 cm LA Ao Ratio MM 1.3 MV E Point Septal Separation 0.8 cm DOPPLER AV Peak Velocity 186.3 cm/s LVOT Peak Velocity 128.0 cm/s AV Area Cont Eq vti 2.6 cm squared AV Area Cont Eq pk 2.2 cm squared MV Area PHT 2.1 cm squared Mitral E to A Ratio 0.8 MV E' Velocity 64.5 cm/s Mitral E to MV E' Ratio 15.2 Mitral E to LV E' Lateral Ratio 16.6 Mitral E to LV E' Septal Ratio 14.0 TR Peak Velocity 257.0 cm/s TR Peak Gradient 26.4 mmHg TR Mean Velocity 208.5 cm/s TR Mean Gradient 18.6 mmHg TR Velocity Time Integral 85.1 cm TV Peak E Velocity 70.0 cm/s Right Atrial Pressure 3.0 mmHg Pulmonary Artery Systolic Pressu 29.4 mmHg PV Peak Velocity 90.0 cm/s RV Acceleration Time 0.1 s RV Ejection Time 0.4 s RV AcT/ET 0.4 FINDINGS Left Ventricle Normal left ventricular size and systolic function, EF 68 %. No regional wall motion abnormalities. Right Ventricle Normal right ventricular size and systolic function. Right Atrium Mildly increased right atrial size. Left Atrium Moderately increased left atrial size. Mitral Valve Thickened mitral valve. Mild mitral annular calcification. Moderate mitral valve regurgitation. Aortic Valve Aortic valve sclerosis. Tricuspid Valve Mild tricuspid valve regurgitation. Pulmonic Valve Pulmonic valve not well visualized. Pericardium No pericardial effusion. Aorta Normal aortic annulus size. IVC Normal inferior vena cava. CONCLUSIONS Normal left ventricular size and systolic function, EF 68 %. No regional wall motion abnormalities. Moderately increased left atrial size. Mildly increased right atrial size. Thickened mitral valve. Mild mitral annular calcification. Moderate mitral valve regurgitation. Aortic valve sclerosis. Mild tricuspid valve regurgitation. Estimated pulmonary artery peak systolic pressure of 29 mmHg There is no pericardial effusion. There are no intracardiac masses. Compared to the study from 06/14/2018, there may not be a significant change in the mitral regurgitation Dr Malika Platt MD [facility] (Electronically Signed) Final Date: 19 October 2022 13:09 S
== END 2022-10-19 09:47 | disposition home or self-care (01) ==
LOC: RAD 09:51
PROVIDERS: PCP Family Medicine; Visit Provider Family Medicine
DX: I08.3 Combined rheumatic disorders of mitral, aortic and tricuspid valves
CPT/HCPCS: 93306

== ENCOUNTER → 2022-10-27 14:46 | Outpatient (BNVA) | payer MEDICARE, OTHER, SELFPAY | PROVIDERS: PCP Family Medicine; Visit Provider Internal Medicine Cardiovascular Disease | DX: R00.2 Palpitations (principal); I25.10 Atherosclerotic heart disease of native coronary artery without angina pectoris; E78.2 Mixed hyperlipidemia; I10 Essential (primary) hypertension; I65.23 Occlusion and stenosis of bilateral carotid arteries; Z87.891 Personal history of nicotine dependence | CPT/HCPCS: 93005; 99214 ==

== ENCOUNTER 2022-12-16 13:05 | Outpatient (CLI) | payer MEDICARE, OTHER, SELFPAY ==
--- NOTE | 2022-12-16 12:00 | USCV_ITS ---
Piedad Zamora Age: 86 Gender: F : 1935 Exam Date: 12/16/2022 13:17 Ordering Phys: Malika Platt MD ([email or web address]/[facility]) Technologist: Maya Suresh Exam Location: [facility] [place] Indication: kirk of cca oclussion Risk Factors: Unknown Previous Vascular Surgery: None Right Brachial BP: / Left Brachial BP: / Right Left Velocity (cm/s) Spectral Plaque Velocity (cm/s) Spectral Plaque Syst/Diast Broadening Syst/Diast Broadening 178.70/20.20 Prox CCA 151.10/ 28.80 102.50/9.30 Mid CCA 106.10/ 18.00 167.80/20.20 Edison Distal CCA 138.50/ 18.00 Edison 116.50/32.60 Edison Prox ICA 133.10/ 36.00 Edison 107.20/29.50 Mid ICA 107.90/ 28.80 127.00/36.60 Distal ICA 122.30/ 27.00 124.30 ECA 202.40 1.24 ICA/CCA 1.25 Bi- Vertebral Antegrade directiona l 33.50/ 10.50 cm/s 109.7/ 18.00 cm/s 0 Bi Subclavian Tri 179.9 290.5 0 0 FINDINGS Moderate to heavy and dense irregular plaques at the right bifurcation and proximal internal carotid artery Moderate dense plaques at the left bifurcation and proximal ICA Intimal thickening and minimal plaques in the common carotid arteries bilaterally. Antegrade flow in the vertebral arteries bilaterally. Elevated Doppler velocities in the left external carotid artery and subclavian arteries CONCLUSIONS Moderate to heavy and dense irregular plaques at the right bifurcation and proximal internal carotid artery with velocity elevation, consistent with a 50 to 69% stenosis. Moderate dense plaques at the left bifurcation and proximal ICA with velocity elevation, consistent with 50 to 69% stenosis. Elevated velocity in the external carotid artery on the left side, suggestive of hemodynamically significant stenosis. Elevated velocity in the left subclavian artery, may suggest greater than 50% stenosis. Consider CTA, to better evaluate the proximal segments of the arch vessels, if clinically indicated Dr Malika Platt MD [facility] (Electronically Signed) Final Date: 18 December 2022 08:53 S
== END 2022-12-16 13:06 | disposition home or self-care (01) ==
LOC: RAD 13:05
PROVIDERS: PCP Family Medicine; Visit Provider Internal Medicine Cardiovascular Disease
DX: I65.23 Occlusion and stenosis of bilateral carotid arteries (principal)
CPT/HCPCS: 93880

== ENCOUNTER 2022-12-18 12:16 | Outpatient (CLI) | payer MEDICARE, OTHER, SELFPAY ==
--- NOTE | 2022-12-18 13:15 | MM_ITS ---
WS: [id number] BILATERAL 3D TOMOSYNTHESIS DIGITAL SCREENING MAMMOGRAPHY WITH CAD CLINICAL INFORMATION: SCREENING HISTORY: Screening mammogram. No current complaints. COMPARISON: November 11, 2020 TECHNIQUE: Bilateral CC and MLO views. FINDINGS: Scattered fibroglandular densities bilaterally. No suspicious focal mass, asymmetry, calcifications, or architectural distortion. No evidence of malignancy. Vascular calcification. Punctate and lucent c entered calcifications. MM/[place] [id number] IMPRESSION: BI-RADS: 2-Benign FOLLOW UP: 1 Year Follow-up Recommend return to annual screening mammography.
== END 2022-12-18 12:17 | disposition home or self-care (01) ==
LOC: RAD 12:22
PROVIDERS: PCP Family Medicine; Visit Provider Electrodiagnostic Medicine
DX: Z12.31 Encounter for screening mammogram for malignant neoplasm of breast (principal)
CPT/HCPCS: 77063; 77067

== ENCOUNTER 2023-01-08 09:42 | Outpatient (CLI) | payer MEDICARE, OTHER, SELFPAY ==
[2023-01-08] MEDS: iohexol 350 mg/mL 500 mL Btl (per mL) IV (10:11)
[2023-01-08 10:19] LABS: Blood Urea Nitrogen 24 mg/dL (8-23)
== END 2023-01-08 09:43 | disposition home or self-care (01) ==
LOC: RAD 09:44
PROVIDERS: PCP Family Medicine; Visit Provider Internal Medicine Cardiovascular Disease
DX: I10 Essential (primary) hypertension (principal); I65.23 Occlusion and stenosis of bilateral carotid arteries; Z53.8 Procedure and treatment not carried out for other reasons
CPT/HCPCS: 82565; 84520; Q9967

== ENCOUNTER 2023-01-26 08:36 | Outpatient (CLI) | payer MEDICARE, OTHER, SELFPAY ==
[2023-01-26 10:04] LABS: Anion Gap 17.3 (5-19); Blood Urea Nitrogen 23 mg/dL (8-23); Calcium 9.2 mg/dL (8.5-10.5); Carbon Dioxide 23 mmol/L (22-29); Chloride 105 mmol/L (98-107); Glucose 99 mg/dL (65-115); NT Pro B Type Natriuretic Pept 105 pg/mL (0-450); Osmolality Calculated 296 mOsm/kg (285-295); Potassium 4.3 mmol/L (3.5-5.1); Sodium 141 mmol/L (136-145)
== END 2023-01-26 08:37 | disposition home or self-care (01) ==
LOC: LAB 08:39
PROVIDERS: PCP Family Medicine; Visit Provider Internal Medicine Cardiovascular Disease
DX: E78.2 Mixed hyperlipidemia (principal); I10 Essential (primary) hypertension; I25.10 Atherosclerotic heart disease of native coronary artery without angina pectoris; I65.23 Occlusion and stenosis of bilateral carotid arteries; Z95.1 Presence of aortocoronary bypass graft; R07.9 Chest pain, unspecified
CPT/HCPCS: 36415; 80048; 83880

== ENCOUNTER 2023-04-12 07:58 | Outpatient (CLI) | payer MEDICARE, OTHER, SELFPAY ==
--- NOTE | 2023-04-12 08:06 | CT_ITS ---
WS: [id number] CT ANGIOGRAM CAROTID ARTERIES HISTORY: carotid stenosis TECHNIQUE: CT angiogram is performed of the carotid arteries. During arterial injection imaging is ob tained from the skull base to the aortic arch in 1.25 mm imaging. Coronal and sagittal reformats are submitted, MIP imaging also reviewed. Additional multiplanar reformats of the carotid arteries are morales bmitted. NASCET criteria utilized. All CT scans at [facility] use at least one of these dose optimization techniques: automated exposure control; mA and/or kV adjustment per patient size (includ es targeted exams where dose is matched to clinical indication); or iterative reconstruction. CONTRAST: Omnipaque 350; 100 mL IV. DLP: 180.43 mGy.cm COMPARISON: None available. Right carotid: Common carotid artery: Tortuous with a small amount of plaque at the origin of the innominate. Common carotid artery Internal carotid artery: Moderate amount of plaque at the carotid bifurcation extending into the prox imal ICA. Stenosis estimated at 50-69%. External carotid artery: Patent. Left carotid: Common carotid artery: Arises normally from the aortic arch. No significant stenosis. Internal carotid artery: Heavily calcified plaque at the carotid bifurcation involving the proximal I CA. Stenosis approximately 70%. External carotid artery: Patent. Right vertebral artery: Unremarkable. Left vertebral artery: Unremarkable. Dominant. Arises normally from the left subclavian artery. Subclavian arteries: No stenosis or abnormality identified. Limited visualization RIGHT subclavian du e to the incoming contrast. Upper thorax: Chronic emphysema. Thyroid gland: Normal. Osseous structures: Unremarkable. Skull base: Negative. CT/CT angio neck [id number] IMPRESSION: 1. Moderate amount of calcified plaque at the carotid bifurcations extending i nto the proximal ICAs. 2. LEFT ICA stenosis estimated at 70%. Greater stenosis involving the LEFT ICA as compared to the RIGHT. 3. RIGHT ICA stenosis 50-69%. 4. Mild atherosclerosis at the origin of the innominate and LEFT common caroti d artery but no stenosis.
[2023-04-12 08:33] LABS: Blood Urea Nitrogen 13 mg/dL (8-23)
[2023-04-12] MEDS: iohexol 350 mg/mL 500 mL Btl (per mL) IV (08:51)
== END 2023-04-12 07:59 | disposition home or self-care (01) ==
PROVIDERS: PCP Family Medicine; Visit Provider Internal Medicine Cardiovascular Disease
DX: I65.23 Occlusion and stenosis of bilateral carotid arteries (principal); I10 Essential (primary) hypertension; J43.9 Emphysema, unspecified
CPT/HCPCS: 70498; 82565; 84520; Q9967

== ENCOUNTER → 2023-05-04 16:17 | Outpatient (BNVA) | payer MEDICARE, OTHER, SELFPAY | PROVIDERS: PCP Family Medicine; Visit Provider Internal Medicine Cardiovascular Disease | DX: R07.9 Chest pain, unspecified (principal); R06.02 Shortness of breath; I25.118 Atherosclerotic heart disease of native coronary artery with other forms of angina pectoris; I10 Essential (primary) hypertension; E78.2 Mixed hyperlipidemia; I65.23 Occlusion and stenosis of bilateral carotid arteries; Z87.891 Personal history of nicotine dependence; R94.31 Abnormal electrocardiogram [ECG] [EKG] | CPT/HCPCS: 93005; 99214 ==

== ENCOUNTER → 2023-05-06 09:50 | Outpatient (BNVA) | payer MEDICARE, OTHER, SELFPAY | PROVIDERS: PCP Family Medicine; Visit Provider Thoracic Surgery (Cardiothoracic Vascular Surgery) | DX: I65.23 Occlusion and stenosis of bilateral carotid arteries (principal); Z87.891 Personal history of nicotine dependence | CPT/HCPCS: 99203 ==

== ENCOUNTER → 2023-09-01 14:13 | Outpatient (BNVA) | payer MEDICARE, SELFPAY | PROVIDERS: PCP Family Medicine; Visit Provider Specialist | DX: M16.0 Bilateral primary osteoarthritis of hip | CPT/HCPCS: 73523; 99204 ==

== ENCOUNTER 2023-09-20 08:08 | Outpatient (CLI) | payer MEDICARE, SELFPAY ==
--- NOTE | 2023-09-20 08:30 | USCV_ITS ---
Piedad Zamora Age: 87 Gender: F : 1935 Exam Date: 09/20/2023 08:28 Ordering Phys: Raul Bay MD (Andy) ([email or web address] [place] Technologist: [place] [facility] [place]: stenosis Risk Factors: Previous Vascular Surgery: Right Brachial BP: / Left Brachial BP: / Right Left Velocity (cm/s) Spectral Plaque Velocity (cm/s) Spectral Plaque Syst/Diast Broadening Syst/Diast Broadening 82.80/ 14.80 Prox CCA 96.60 / 8.90 91.70/ 13.80 Mid CCA 82.30 / 9.60 113.90/16.70 Distal CCA 84.90 / 9.10 286.80/56.40 Prox ICA 100.80/ 23.80 235.10/42.30 Mid ICA 87.90 / 16.50 100.00/20.80 Distal ICA 82.20 / 12.10 138.90 ECA 157.30 2.52 ICA/CCA 1.04 Antegrade Vertebral Antegrade 34.40/ 10.70 cm/s 73.10/ 15.80 cm/s Tri Subclavian Bi 143.2 134.0 0 0 FINDINGS Comparison:. 12/16/22 Increasing velocity right ICA with atherosclerotic plaque in the bifurcation. Diastolic velocity remains less than 100 cm/sec. Moderate plaque at the left bifurcation with mild elevation of velocity. Antegrade vertebral arteries. CONCLUSIONS Right ICA stenosis 70-99%. Increase in systolic velocity. Mild progression of stenosis. Left ICA stenosis 50-69%, closer to 50%.. Heavy plaque in the bifurcations. Dr. Rosana Valdovinos DO (Electronically Signed) Final Date: 20 September 2023 09:33 S
== END 2023-09-20 08:09 | disposition home or self-care (01) ==
LOC: RAD 08:10
PROVIDERS: PCP Family Medicine; Visit Provider Thoracic Surgery (Cardiothoracic Vascular Surgery)
DX: I65.23 Occlusion and stenosis of bilateral carotid arteries (principal)
CPT/HCPCS: 93880

== ENCOUNTER → 2023-11-09 13:25 | Outpatient (BNVA) | payer MEDICARE, SELFPAY | PROVIDERS: PCP Family Medicine; Visit Provider Thoracic Surgery (Cardiothoracic Vascular Surgery) | DX: I65.23 Occlusion and stenosis of bilateral carotid arteries (principal); Z87.891 Personal history of nicotine dependence; I10 Essential (primary) hypertension | CPT/HCPCS: 99213 ==

== ENCOUNTER → 2023-11-11 11:44 | Outpatient (BNVA) | payer MEDICARE, SELFPAY | PROVIDERS: PCP Family Medicine; Visit Provider Internal Medicine Cardiovascular Disease | DX: I25.118 Atherosclerotic heart disease of native coronary artery with other forms of angina pectoris (principal); I65.23 Occlusion and stenosis of bilateral carotid arteries; E78.2 Mixed hyperlipidemia; I10 Essential (primary) hypertension; Z87.891 Personal history of nicotine dependence | CPT/HCPCS: 99214 ==

== ENCOUNTER 2023-12-07 07:37 | Outpatient (CLI) | payer MEDICARE, SELFPAY ==
[2023-12-07 08:06] VITALS: BMI 26.6
--- NOTE | 2023-12-07 08:07 | ECG_ITS ---
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 Interpretive Statements NAME OF STUDY: LEXISCAN SESTAMIBI STRESS TEST INDICATION: Chest Pain/ RESULTS TO ENOC ORTEGA PROCEDURE: At the baseline, the EKG revealed normal sinus rhythm with incomplete right bundle branch block. The baseline heart was 68 bpm with a blood pressue of 145/58 mm of Hg Lexiscan was infused over a period of 20 seconds. A total of 0.4 milligrams of Lexiscan was infused. The stress phase was continued for a total of 5 minutes. Heart rate at the end of the stress phase was 79 bpm with a blood pressure 115/42 mm of Hg. The EKG at the peak infusion revealed no significant changes. Sestamibi was injected 20 seconds after the Lexiscan infusion. Heart rate at the end of the recovery phase was 88 bpm with a blood pressure of 127/45 mm of Hg. CONCLUSION: 1. No significant EKG changes with the LexiScan infusion 2. No LexiScan induced chest pain or cardiac arrhythmia 3. Normal blood pressure and heart rate response 4. Sestamibi/sestamibi perfusion scan pending; see separate report. Electronically Signed On 12-11-2023 14:48:40 SEASONAL RECRUITER by Malika Platt M.D. [id number]
--- NOTE | 2023-12-07 08:08 | NMCV_ITS ---
NM monica perf SPECT r/s* [id number] Piedad Zamora Age: 87 Gender: F : 1935 Exam Date: 12/07/2023 08:08 Ordering Phys: Malika Platt MD ([email or web address]) Technologist: LITTLE Tovar Exam Location: [facility] Indications: CORONARY ANGIOPLASTY STATUS STRESS TEST Please see separate stress test report in [facility] for full findings IMAGE PROTOCOL Rest/Stress 1 Lexiscan Day Radiopharmaceutical Dose (mCi) Administration Site Administered by Rest: Tc-99m 10.3 IV LITTLE Fernandez Sestamibi Stress:Tc-99m 32.5 IV LITTLE Fernandez Sestamibi Rest: 07-Dec-2023 60 Discovery 630 Stress: 07-Dec-2023 30 Discovery 630 0.4mg Lexiscan. Images obtained in supine and prone position. SPECT RESULTS Technical Quality: Excellent Raw Data Analysis: Normal Image Corrections: No attenuation or motion correction applied Summed Stress Score: 0 Summed Rest Score: 1 Summed Difference Score: 0 PERFUSION FINDINGS Uniform myocardial l tracer uptake with no significant perfusion normalities FUNCTIONAL RESULTS (calculated via Gated SPECT) Stress Image LV EF (%): 84 Stress EDV (mL):61 TID: 0.91 Stress ESV (mL):10 FUNCTIONAL FINDINGS: Segmental wall motion analysis revealing no gross wall motion abnormalities IMPRESSIONS 1. Myocardial perfusion imaging revealing uniform myocardial tracer uptake with no significant perfusion normalities. 2. Normal LV ejection fraction of 84%. 3. LV wall motion analysis revealing no gross wall motion abnormalities. 4. Normal LV volume Low probability for coronary ischemia, based on the above findings Dr Malika Platt MD [facility] (Electronically Signed) Final Date: 07 December 2023 21:03 S
[2023-12-07] MEDS: regadenoson 0.4 Mg/5 ml Syringe 0.400000000000000022 MG IVP (09:10)
[2023-12-07 09:37] VITALS: BP 123/42; PULSE 88
== END 2023-12-07 07:38 | disposition home or self-care (01) ==
PROVIDERS: PCP Family Medicine; Visit Provider Internal Medicine Cardiovascular Disease
DX: R07.9 Chest pain, unspecified (principal); Z98.61 Coronary angioplasty status
CPT/HCPCS: 36415; 78452; 93017; 96374; A9500; J2785

== ENCOUNTER → 2024-01-19 09:21 | Outpatient (BNVA) | payer MEDICARE, SELFPAY | PROVIDERS: PCP Family Medicine; Visit Provider Anesthesiology Pain Medicine | DX: M54.50 Low back pain, unspecified (principal); M16.0 Bilateral primary osteoarthritis of hip | CPT/HCPCS: 99204 ==

== ENCOUNTER 2024-04-10 12:52 | Outpatient (CLI) | payer MEDICARE, OTHER, SELFPAY ==
--- NOTE | 2024-04-10 13:15 | USCV_ITS ---
Piedad Zamora Age: 88 Gender: F : 1935 Exam Date: 04/10/2024 13:21 Ordering Phys: Raul Bay MD (Andy) Technologist: [facility] [place]am [place] [facility] [place]ication: stenosis Risk Factors: Previous Vascular Surgery: Right Brachial BP: / Left Brachial BP: / Right Left Velocity (cm/s) Spectral Plaque Velocity (cm/s) Spectral Plaque Syst/Diast Broadening Syst/Diast Broadening 100.90/15.40 Prox CCA 80.80 / 17.30 91.70/ 16.70 Mid CCA 68.80 / 7.90 87.80/ 18.00 Distal CCA 71.30 / 7.70 221.90/53.10 Prox ICA 98.50 / 23.60 220.20/43.70 Mid ICA 101.40/ 23.60 191.30/54.30 Distal ICA 107.10/ 26.50 172.40 ECA 141.20 2.50 ICA/CCA 1.50 Vertebral Antegrade 33.30/ 11.00 cm/s 78.30/ 9.20 cm/s Tri Subclavian Tri 169.8 92.70 0 FINDINGS comp 09/20/23 CONCLUSIONS Right ICA stenosis 70-99% at the lower end of the range. Severe calcified atheromatous plaque right carotid bulb/ICA. Right ICA velocities slightly decreased compared to prevous Left ICA stenosis <50%. Severe calcified atheromatous plaque left carotid bulb/ICA. Normal antegrade Doppler flow noted in the right vertebral artery. Normal antegrade Doppler flow noted in the left vertebral artery. Jose Saba MD (Electronically Signed) Final Date: 10 April 2024 16:20 S
== END 2024-04-10 12:53 | disposition home or self-care (01) ==
PROVIDERS: PCP Family Medicine; Visit Provider Thoracic Surgery (Cardiothoracic Vascular Surgery)
DX: I65.23 Occlusion and stenosis of bilateral carotid arteries (principal)
CPT/HCPCS: 93880

== ENCOUNTER → 2024-05-11 15:19 | Outpatient (BNVA) | payer MEDICARE, SELFPAY | PROVIDERS: PCP Family Medicine; Visit Provider Internal Medicine Cardiovascular Disease | DX: R06.02 Shortness of breath (principal); R07.89 Other chest pain | CPT/HCPCS: 36415; 80048; 83880; 93005 ==

== ENCOUNTER 2024-05-26 08:51 | Outpatient (CLI) | payer MEDICARE, SELFPAY ==
--- NOTE | 2024-05-26 09:00 | CT_ITS ---
WS: [id number] CTA NECK TECHNIQUE: Contrast enhanced CTA of the neck with coronal and sagittal reformatted images and maximum intensity projection (MIP) images. NASCET criteria utilized. CLINICAL INFORMATION: carotid stenosis COMPARISON: CTA 04/12/2023 and ultrasound 04/10/2024 DLP: 201.[address] scans at [facility] use at least one of these dose optimization techniques: automated e xposure control; mA and/or kV adjustment per patient size (includes targeted exams where dose is matc hed to clinical indication); or iterative reconstruction. FINDINGS: RIGHT: RIGHT common carotid artery is patent. RIGHT ICA remains patent to the skull base. RIGHT proxi mal ICA stenosis 40%. Moderate calcified atheromatous plaque RIGHT carotid bulb extending into the IC A. LEFT: LEFT common carotid artery is patent. Moderate calcified atheromatous plaque LEFT carotid bulb extending into the ICA. LEFT ICA stenosis measures 48%. LEFT ICA remains patent to the skull base. Cavernous carotid calcification. Codominant and patent vertebral arteries patent to the basilar junct ion. Aortic arch calcification. Advanced emphysematous changes in the lung apices with fibrosis. Sternotom y. Proximal subclavian arteries appear patent. Postoperative changes cervical spine with ACDF C5-6. Tiny RIGHT thyroid nodule. Mastoid air cells are well aerated. Paranasal sinuses are well aerated. Normal posterior nasopharynx. CT/CT angio neck [id number] IMPRESSION: ICA stenosis appears stable compared to previous with less respirat ory artifact today. 1. Moderate calcified atheromatous plaque RIGHT carotid bulb extending into th e ICA with stenosis measuring 40% 2. Moderate calcified atheromatous plaque LEFT carotid bulb extending into the ICA with stenosis measuring 48%. 3. Codominant and patent vertebral arteries bilaterally.
== END 2024-05-26 08:52 | disposition home or self-care (01) ==
LOC: RAD 08:53
PROVIDERS: PCP Family Medicine; Visit Provider Nurse Practitioner Family
DX: I65.23 Occlusion and stenosis of bilateral carotid arteries (principal); I70.0 Atherosclerosis of aorta; J84.10 Pulmonary fibrosis, unspecified
CPT/HCPCS: 70498; 99213; Q9967

== ENCOUNTER → 2024-09-27 15:50 | Outpatient (BNVA) | payer MEDICARE, SELFPAY | PROVIDERS: PCP Family Medicine; Visit Provider Podiatrist Foot & Ankle Surgery | DX: M25.572 Pain in left ankle and joints of left foot (principal); M19.072 Primary osteoarthritis, left ankle and foot; R60.9 Edema, unspecified; G62.9 Polyneuropathy, unspecified | CPT/HCPCS: 73610; 99203 ==

== ENCOUNTER → 2024-11-27 09:50 | Outpatient (BNVA) | payer MEDICARE, SELFPAY | PROVIDERS: PCP Family Medicine; Visit Provider Nurse Practitioner Family | DX: I10 Essential (primary) hypertension (principal); M79.89 Other specified soft tissue disorders; I25.10 Atherosclerotic heart disease of native coronary artery without angina pectoris; I65.29 Occlusion and stenosis of unspecified carotid artery; E78.2 Mixed hyperlipidemia; R60.0 Localized edema; G62.9 Polyneuropathy, unspecified | CPT/HCPCS: 99214 ==

== ENCOUNTER 2025-01-03 09:03 | Outpatient (CLI) | payer MEDICARE, SELFPAY ==
--- NOTE | 2025-01-03 09:30 | USR_ITS ---
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 Lt gsv below knee removed in the 90s for a bypass; Additional info: Chronic le edema, varicosities TECHNIQUE: Imaging protocol: Real-time duplex ultrasound of the bilateral extremities with 2-D schwartz scale, color Doppler flow and spectral waveform analysis including responses to compression and other maneuvers (when performed) with image documentation. Complete exam focused on the lower extremity veins. COMPARISON: No relevant prior studies available. FINDINGS: Right deep veins: Common femoral, femoral, profunda femoral and popliteal veins demonstrate normal compressibility, patency without thrombus. Normal Doppler waveforms. Left deep veins: Common femoral, femoral, profunda femoral and popliteal veins demonstrate normal compressibility, patency without thrombus. Normal Doppler waveforms. Other veins: Not applicable. Superficial veins: Greater saphenous veins at the saphenofemoral junctions are patent bilaterally without thrombus. Venous reflux identified within left leg greater saphenous and short saphenous veins. Recommend clinical correlation. Soft tissues: Unremarkable. US/CV matt dup insuchanelle MACARIO [id number] IMPRESSION: No evidence of deep vein thrombosis.
== END 2025-01-03 09:04 | disposition home or self-care (01) ==
LOC: RAD 09:04
PROVIDERS: PCP Family Medicine; Visit Provider Nurse Practitioner Family
DX: M79.89 Other specified soft tissue disorders (principal); R93.89 Abnormal findings on diagnostic imaging of other specified body structures
CPT/HCPCS: 93970